=== PATIENT | male | born 1975 | race Caucasian/White ===

== ENCOUNTER 2024-09-22 18:12 | Inpatient (IN) | payer BC, SELFPAY ==
[2024-09-22] VITALS (17 sets, daily range): BP systolic 124–170; BP diastolic 77–113; PULSE 67–138; RESP 14–30; TEMP 36.6–37.1; O2SAT 96–99; BMI 32.8; BMI 33.5
--- NOTE | 2024-09-22 18:14 | ECG_ITS ---
APPROVED REPORT Exam: Resting ECG HR:116 bpm ECG Measurements Heart Rate 116 AXES SD 246 P 72 QRSd 174 QRS 42 QT 376 T -34 QTc 445 Conclusion SINUS TACHYCARDIA WITH FIRST DEGREE AV BLOCK POSSIBLE RIGHT ATRIAL ENLARGEMENT [0.25mV P-WAVE] LEFT ATRIAL ENLARGEMENT [-0.15mV P-WAVE IN V1/V2] LEFT BUNDLE BRANCH BLOCK [120+ ms QRS DURATION, 80+ ms Q/S IN V1/V2, 85+ ms R IN I/aVL/V5/V6] ABNORMAL ECG UNCONFIRMED REPORT Electronically signed by : Tigre Giordano, 09/22/2024 19:08:17
--- NOTE | 2024-09-22 18:16 | ED_ITS ---
Discharge Plan Disposition Patient Disposition: Admitted Condition: Critical Prescriptions Prescriptions: No Action bupropion HCl 150 mg tablet sustained-release 12 hr 150 mg PO BID Patient Comments: TAKE 1 TABLET BY MOUTH TWICE DAILY FOR 90 DAYS atorvastatin 10 mg tablet 10 mg PO DAILY Patient Comments: TAKE 1 TABLET BY MOUTH ONCE DAILY FOR 90 DAYS omeprazole 40 mg capsule,delayed release(DR/EC) 40 mg PO DAILY Patient Comments: TAKE 1 CAPSULE BY MOUTH ONCE DAILY amlodipine 10 mg tablet 10 mg PO DAILY Patient Comments: TAKE 1 TABLET BY MOUTH ONCE DAILY FOR 90 DAYS divalproex 500 mg tablet extended release 24 hr 500 mg PO DAILY Patient Comments: TAKE 1 TABLET BY MOUTH ONCE DAILY lisinopril 5 mg tablet 5 mg PO DAILY Patient Comments: TAKE 1 TABLET BY MOUTH ONCE DAILY Clinical Impressions Clinical Impression: Left bundle branch block, Hypertensive emergency Chest pain Qualifiers: Chest pain type: unspecified Qualified Code(s): R07.9 - Chest pain, unspecified Pulmonary edema Qualifiers: Chronicity: acute Qualified Code(s): J81.0 - Acute pulmonary edema Print Language Print Language: Fijian Discharge ED Provider: Tigre Giordano General Adult HPI <MAKAYLA Tirado - Last Filed: 09/22/24 19:47> General Chief complaint: Chest Pain Stated complaint: Chest pain Time Seen by Provider: 09/22/24 18:13 History of Present Illness HPI narrative: Patient presents for evaluation of chest pain. Patient reports that he was walking to his car around 6 PM and started getting very short of breath. He then began having chest pain located in the center of his chest. He noticed that his heart rate was also very fast and hence presented to the emergency department. Patient states that he has been having anginal type symptoms since June after a bout of COVID in May. 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 He is currently on amlodipine and atorvastatin lisinopril. Patient states that he has been having intermittent anginal symptoms however the last week they have increased the in intensity frequency and duration.. He currently denies fever chills hemoptysis hematochezia melena he had some nausea but no vomiting or diarrhea. Related Data Home Medications ?Medication ?Instructions ?Recorded ?Confirmed amlodipine 10 mg tablet 10 mg PO DAILY 09/22/24 09/22/24 atorvastatin 10 mg tablet 10 mg PO DAILY 09/22/24 09/22/24 bupropion HCl 150 mg tablet,12 hr 150 mg PO BID 09/22/24 09/22/24 sustained-release divalproex 500 mg tablet,extended 500 mg PO DAILY 09/22/24 09/22/24 release 24 hr lisinopril 5 mg tablet 5 mg PO DAILY 09/22/24 09/22/24 omeprazole 40 mg capsule,delayed 40 mg PO DAILY 09/22/24 09/22/24 release Allergies Allergy/AdvReac Type Severity Reaction Status Date / Time No Known Allergies Allergy Verified 09/22/24 18:32 [facility] <MAKAYLA Tirado - Last Filed: 09/22/24 19:47> [facility] Disclaimer: The information contained in this section may have been updated after the patient was seen, as this information can be updated by other users. Social History (Updated 09/22/24 @ 19:47 by MAKAYLA Tirado) Smoking Status: Never smoker alcohol intake: never current occupational status: employed Travel in the last 8 weeks: None Have you lived/traveled outside [place] in past 30 days?: No Contact w/someone who lives/traveled outside US past 30 days?: No Exposure to someone with infectious disease in past 14 days?: No Do you have a fever (greater than 100.4 F or 38 C)?: No Have you tested positive for COVID-19: No Exposed to someone with COVID-19 in past 14 days?: No Do you have a sore throat?: No Do you have a cough?: No Do you have any weakness?: No Do you have any diarrhea?: No Are you experiencing any unusual bleeding?: No Do you have any muscle aches/pain?: No Do you have any abdominal pain?: No Are you experiencing loss of taste or smell?: No <MAKAYLA Tirado - Last Filed: 09/22/24 19:47> ROS Obtained: Yes Systems reviewed as appropriate & no additional complaints except as documented Physical Exam <MAKAYLA Tirado - Last Filed: 09/22/24 19:47> General General appearance: alert and in no apparent distress Respiratory Respiratory exam: Present normal lung sounds bilaterally Cardiovascular Cardiovascular exam: Present tachycardia, normal heart sounds, +S1 and +S2 Neurological Exam Neurological exam: Present alert and oriented X3 Medical Decision Making <MAKAYLA Tirado - Last Filed: 09/22/24 19:47> Medical Records Medical records reviewed: Yes I reviewed the patient's medical records. Screening: Per USPSTF and CDC recommendations, given the prevalence of disease in our region, it is our hospital?s policy to screen for HIV and viral Hepatitis for all patients aged 18 and over and those with ongoing risk factors. [place] Inquiry Pt receiving controlled substance: No Vital Signs: 09/22/24 18:17 09/22/24 18:19 09/22/24 18:20 Temperature 98.7 F Temperature Source Temporal Artery Scan Pulse Rate 120 H 105 H Pulse Rate [Right] 138 H Respiratory Rate 18 Blood Pressure 170/112 H 168/112 H Blood Pressure [Right Arm] 170/112 H Blood Pressure Mean Blood Pressure Mean [Right Arm] 131 Blood Pressure Source [Right Arm] Automatic Cuff Blood Pressure Position [Right Arm] Sitting 02 Sat by Pulse Oximetry 97 98 99 Oxygen Delivery Method Room Air Room Air 09/22/24 18:36 09/22/24 19:00 09/22/24 19:03 Temperature Temperature Source Pulse Rate 101 H 88 85 Pulse Rate [Right] Respiratory Rate 30 H 20 Blood Pressure 148/100 H 146/106 H Blood Pressure [Right Arm] Blood Pressure Mean 118 Blood Pressure Mean [Right Arm] Blood Pressure Source [Right Arm] Blood Pressure Position [Right Arm] 02 Sat by Pulse Oximetry 98 97 Oxygen Delivery Method 09/22/24 19:05 09/22/24 19:15 09/22/24 19:24 Temperature Temperature Source Pulse Rate 84 86 78 Pulse Rate [Right] Respiratory Rate 19 14 18 Blood Pressure 162/113 H 153/107 H 137/100 H Blood Pressure [Right Arm] Blood Pressure Mean Blood Pressure Mean [Right Arm] Blood Pressure Source [Right Arm] Blood Pressure Position [Right Arm] 02 Sat by Pulse Oximetry 99 98 98 Oxygen Delivery Method Room Air Lab Data Lab results reviewed: Yes I reviewed the patient's lab results. Lab Results 09/22/24 18:20: WBC 6.0, RBC 4.86, Hgb 15.5, Hct 44.6, MCV 91.8, MCH 31.9 H, MCHC 34.8, RDW 12.5, Plt Count 244, MPV 10.2, Neut % (Auto) 56.4, Lymph % (Auto) 27.9, Pepin % (Auto) 11.1 H, Eos % (Auto) 3.2, Baso % (Auto) 0.7, Neut # (Auto) 3.4, Lymph # (Auto) 1.7, Pepin # (Auto) 0.7, Eos # (Auto) 0.2, Baso # (Auto) 0.0, PT 10.8, INR 0.96, APTT 26.2 L, D-Dimer 0.55 H, Sodium 140, Potassium 3.9, Chloride 104, Carbon Dioxide 25, Anion Gap 14.9, BUN 13, Creatinine 0.80, Estimated Creat Clear 170, Estimated GFR 102, Est GFR ( Amer) 123, G lucose 157 H, Hemoglobin A1c 5.3, Calcium 9.2, Total Bilirubin 0.8, AST 44, ALT 90 H, Alkaline Phosphatase 55, Troponin I 0.01, NT-Pro-B Natriuret Pep 766 H, Total Protein 7.9, Albumin 4.5, Globulin 3.4 H, Albumin/Globulin Ratio 1.3, Procalcitonin 0.065, Free T4 Index 2.4 L, Thyroxine (T4) 7.9, T3 Uptake 31 09/22/24 18:20 09/22/24 18:20 Orders (Tests/Meds): ED MEDICATIONS Generic Name Dose Route Start Last Admin Trade Name Freq PRN Reason Stop Dose Admin Nitroglycerin/Dextrose 250 mls @ 3 mls/hr 09/22/24 19:15 09/22/24 19:17 Nitroglycerin 50mg/250ml D5w IV 10/22/24 19:14 10 mcg/min .Q24H [place] 3 mls/hr Administration Protocol 10 MCG/MIN Heparin Sodium/Dextrose 500 mls @ 20 mls/hr 09/22/24 19:30 09/22/24 19:42 Heparin 25,000 Units In D5w 500ml Premix IV 10/22/24 19:29 20 mls/hr .Q25H [place] Administration 1,000 UNITS/HR Miscellaneous 1 each 09/22/24 19:15 Heparin Drip Consult NOTAPPLIC 10/22/24 19:14 CON[facility]ULT [facility]Y [place] Discontinued Medications Generic Name Dose Route Start Last Admin Trade Name Marla PRN Reason Stop Dose Admin Acetaminophen 1,000 mg 09/22/24 18:20 09/22/24 18:43 Acetaminophen 1,000mg/100ml Vial IV 09/22/24 18:21 1,000 mg ONCE ONE Administration Aspirin 324 mg 09/22/24 18:40 09/22/24 18:43 Aspirin 81mg Chewable Tablet PO 09/22/24 18:41 324 mg ONCE ONE Administration Furosemide 40 mg 09/22/24 19:30 09/22/24 19:41 Furosemide 40mg/4ml Vial IV 09/22/24 19:31 40 mg ONCE ONE Administration Heparin Sodium (Porcine) 4,000 unit 09/22/24 19:30 09/22/24 19:41 Heparin Sodium 5,000 Unit/Ml Vial IV 09/22/24 19:31 4,000 unit ONCE ONE Administration Ketorolac Tromethamine 15 mg 09/22/24 18:20 09/22/24 18:43 Ketorolac 30mg/Ml Vial IV 09/22/24 18:21 15 mg ONCE ONE Administration Metoprolol Tartrate 5 mg 09/22/24 18:50 09/22/24 18:55 Metoprolol Tartrate 5mg/5ml Vial IV 09/22/24 18:51 5 mg ONCE ONE Administration Metoprolol Tartrate 5 mg 09/22/24 19:01 09/22/24 19:00 Metoprolol Tartrate 5mg/5ml Vial IV 09/22/24 19:02 5 mg ONCE ONE Administration Metoprolol Tartrate 5 mg 09/22/24 19:06 09/22/24 19:12 Metoprolol Tartrate 5mg/5ml Vial IV 09/22/24 19:07 5 mg ONCE ONE Administration Metoprolol Tartrate 50 mg 09/22/24 19:39 09/22/24 19:53 Metoprolol Tartrate 50mg Tablet PO 09/22/24 19:40 50 mg ONCE ONE Administration Ondansetron HCl 4 mg 09/22/24 18:20 09/22/24 18:44 Ondansetron 4mg/2ml Vial IV 09/22/24 18:21 4 mg ONCE ONE Administration ORDERS Category Date Time Status Chest XR 2 view (NOT portable) [XR chest 2V] Stat Exams 09/22/24 18:20 Completed POCUS Point of Care (ER Only) Stat Exams 09/22/24 18:32 Completed BNP [NT Pro Brain Natriuretic Pep.] Stat Lab 09/22/24 18:20 Completed CBC w/Auto Diff [Complete Blood Count Auto Diff] Stat Lab 09/22/24 18:20 Completed CMP [Comprehensive Metabolic Panel] Stat Lab 09/22/24 18:20 Completed D-Dimer Stat Lab 09/22/24 18:20 Completed Hemoglobin A1C Stat Lab 09/22/24 18:20 Completed INR [Prothrombin Time INR] Stat Lab 09/22/24 18:20 Completed PTT Heparin (inpatient only) Stat Lab 09/22/24 18:20 Completed PTT Heparin (inpatient only) Stat Lab 09/23/24 01:30 Ordered Procalcitonin Stat Lab 09/22/24 18:20 Completed Thyroid Panel Stat Lab 09/22/24 18:20 Results Trop I [Troponin I] Stat Lab 09/22/24 18:20 Completed Troponin I Q3H Lab 09/22/24 21:30 Ordered Troponin I Q3H Lab 09/23/24 00:30 Ordered UA [Urinalysis and Microscopic] Stat Lab 09/22/24 18:20 Ordered UDS [Drug Screen,Urine] Stat Lab 09/22/24 18:21 Ordered HEART Score History (anamnesis): Moderately suspicious ECG: Non-specific disturbance Age: 45-65 years Risk factors: 3 or more risk factors Troponin: </= normal limit HEART Score: 5 Medical Decision Narrative: In summary patient is a 79-year-old male who presents to the emergency department for evaluation of chest pain. Patient is initially hemodynamically unstable with a hypertensive blood pressure 170/112 heart rate of 138 with sinus tachycardia on the bedside monitor breathing 18 times a minute satting at 97% on room air upon arrival, afebrile at 98.7. Physical exam is remarkable for no reproducible chest pain on palpation, breath sounds clear and equal bilaterally to the bases without adventitious sounds, no increased work of breathing or accessory muscle use, no dependent edema noted, abdomen soft nontender no rebound or guarding no rigidity. Mechelle Coma Score is 15. Differential diagnosis includes hypertensive emergency versus tachyarrhythmia versus ACS versus PE etc. Initial workup will be conducted with hematologic labs 2 view chest x-ray twelve-lead EKG urinalysis. Initial interventions include 324 chewable aspirin Tylenol and Toradol. I then had an interactive discussion with Dr. Adrian after the first EKG showed a left bundle branch block and patient is still symptomatic with chest pain and dyspnea. He still tachycardic and hypertensive. Dr. Adrian wanted to do rapid metoprolol IV push every 5 minutes to try to have his target heart rate in the 70s. We did do exactly that and we have slowed his heart rate down into the upper 70s and his blood pressure still remains 140/100 however his symptoms are abating. He reports that he has some tightness with breast but no chest pain. I then talked to Dr. Adrian again and the plan is to start the patient on a heparin and nitroglycerin drip with a target heart rate of 70 and goal is to get him pain-free. Initial workup reviewed by me and his hematologic labs show a normal white count normal H&H no neutrophilic shift, INR 0.96 D-dimer 0.55 and he is cleared for PE by years criteria, glucose is 157 hemoglobin A1c is 5.3 initial troponin is 0.01 NT proBNP is 766 and his procalcitonin is 0.065, mild formal interpretation of his plain film chest x-ray shows early signs of peribronchial cuffing which could be early pulmonary edema due to his hypertension and heart rate. Upon repeat evaluation at 1929 patient is still resting comfortably and feels better but still having some discomfort. I will give him a small dose of Lasix but he has having no chest pain currently. Dr. Adrian notified at 1929 regarding patient's new vital signs blood pressure and heart rate and he will give the patient a dose of metoprolol tonight and plans to evaluate for heart cath tomorrow.. Given this I had interactive discussion with hospital medicine regarding patient DE LEON presentation and management and he will be admitted for further evaluation and care with cardiology consult for the a.m. <Tigre Giordano MD - Last Filed: 09/22/24 20:00> Vital Signs: 09/22/24 18:17 09/22/24 18:19 09/22/24 18:20 Temperature 98.7 F Temperature Source Temporal Artery Scan Pulse Rate 120 H 105 H Pulse Rate [Right] 138 H Respiratory Rate 18 Blood Pressure 170/112 H 168/112 H Blood Pressure [Right Arm] 170/112 H Blood Pressure Mean Blood Pressure Mean [Right Arm] 131 Blood Pressure Source [Right Arm] Automatic Cuff Blood Pressure Position [Right Arm] Sitting 02 Sat by Pulse Oximetry 97 98 99 Oxygen Delivery Method Room Air Room Air 09/22/24 18:36 09/22/24 19:00 09/22/24 19:03 Temperature Temperature Source Pulse Rate 101 H 88 85 Pulse Rate [Right] Respiratory Rate 30 H 20 Blood Pressure 148/100 H 146/106 H Blood Pressure [Right Arm] Blood Pressure Mean 118 Blood Pressure Mean [Right Arm] Blood Pressure Source [Right Arm] Blood Pressure Position [Right Arm] 02 Sat by Pulse Oximetry 98 97 Oxygen Delivery Method 09/22/24 19:05 09/22/24 19:15 09/22/24 19:24 Temperature Temperature Source Pulse Rate 84 86 78 Pulse Rate [Right] Respiratory Rate 19 14 18 Blood Pressure 162/113 H 153/107 H 137/100 H Blood Pressure [Right Arm] Blood Pressure Mean Blood Pressure Mean [Right Arm] Blood Pressure Source [Right Arm] Blood Pressure Position [Right Arm] 02 Sat by Pulse Oximetry 99 98 98 Oxygen Delivery Method Room Air Lab Data Lab Results 09/22/24 18:20: WBC 6.0, RBC 4.86, Hgb 15.5, Hct 44.6, MCV 91.8, MCH 31.9 H, MCHC 34.8, RDW 12.5, Plt Count 244, MPV 10.2, Neut % (Auto) 56.4, Lymph % (Auto) 27.9, Pepin % (Auto) 11.1 H, Eos % (Auto) 3.2, Baso % (Auto) 0.7, Neut # (Auto) 3.4, Lymph # (Auto) 1.7, Pepin # (Auto) 0.7, Eos # (Auto) 0.2, Baso # (Auto) 0.0, PT 10.8, INR 0.96, APTT 26.2 L, D-Dimer 0.55 H, Sodium 140, Potassium 3.9, Chloride 104, Carbon Dioxide 25, Anion Gap 14.9, BUN 13, Creatinine 0.80, Estimated Creat Clear 170, Estimated GFR 102, Est GFR ( Amer) 123, G lucose 157 H, Hemoglobin A1c 5.3, Calcium 9.2, Total Bilirubin 0.8, AST 44, ALT 90 H, Alkaline Phosphatase 55, Troponin I 0.01, NT-Pro-B Natriuret Pep 766 H, Total Protein 7.9, Albumin 4.5, Globulin 3.4 H, Albumin/Globulin Ratio 1.3, Procalcitonin 0.065, Free T4 Index 2.4 L, Thyroxine (T4) 7.9, T3 Uptake 31 Orders (Tests/Meds): ED MEDICATIONS Generic Name Dose Route Start Last Admin Trade Name Freq PRN Reason Stop Dose Admin Nitroglycerin/Dextrose 250 mls @ 3 mls/hr 09/22/24 19:15 09/22/24 19:17 Nitroglycerin 50mg/250ml D5w IV 10/22/24 19:14 10 mcg/min .Q24H [place] 3 mls/hr Administration Protocol 10 MCG/MIN Heparin Sodium/Dextrose 500 mls @ 20 mls/hr 09/22/24 19:30 09/22/24 19:42 Heparin 25,000 Units In D5w 500ml Premix IV 10/22/24 19:29 20 mls/hr .Q25H [place] Administration 1,000 UNITS/HR Miscellaneous 1 each 09/22/24 19:15 Heparin Drip Consult NOTAPPLIC 10/22/24 19:14 [facility] [place] Discontinued Medications Generic Name Dose Route Start Last Admin Trade Name Freq PRN Reason Stop Dose Admin Acetaminophen 1,000 mg 09/22/24 18:20 09/22/24 18:43 Acetaminophen 1,000mg/100ml Vial IV 09/22/24 18:21 1,000 mg ONCE ONE Administration Aspirin 324 mg 09/22/24 18:40 09/22/24 18:43 Aspirin 81mg Chewable Tablet PO 09/22/24 18:41 324 mg ONCE ONE Administration Furosemide 40 mg 09/22/24 19:30 09/22/24 19:41 Furosemide 40mg/4ml Vial IV 09/22/24 19:31 40 mg ONCE ONE Administration Heparin Sodium (Porcine) 4,000 unit 09/22/24 19:30 09/22/24 19:41 Heparin Sodium 5,000 Unit/Ml Vial IV 09/22/24 19:31 4,000 unit ONCE ONE Administration Ketorolac Tromethamine 15 mg 09/22/24 18:20 09/22/24 18:43 Ketorolac 30mg/Ml Vial IV 09/22/24 18:21 15 mg ONCE ONE Administration Metoprolol Tartrate 5 mg 09/22/24 18:50 09/22/24 18:55 Metoprolol Tartrate 5mg/5ml Vial IV 09/22/24 18:51 5 mg ONCE ONE Administration Metoprolol Tartrate 5 mg 09/22/24 19:01 09/22/24 19:00 Metoprolol Tartrate 5mg/5ml Vial IV 09/22/24 19:02 5 mg ONCE ONE Administration Metoprolol Tartrate 5 mg 09/22/24 19:06 09/22/24 19:12 Metoprolol Tartrate 5mg/5ml Vial IV 09/22/24 19:07 5 mg ONCE ONE Administration Metoprolol Tartrate 50 mg 09/22/24 19:39 09/22/24 19:53 Metoprolol Tartrate 50mg Tablet PO 09/22/24 19:40 50 mg ONCE ONE Administration Ondansetron HCl 4 mg 09/22/24 18:20 09/22/24 18:44 Ondansetron 4mg/2ml Vial IV 09/22/24 18:21 4 mg ONCE ONE Administration ORDERS Category Date Time Status Chest XR 2 view (NOT portable) [XR chest 2V] Stat Exams 09/22/24 18:20 Completed POCUS Point of Care (ER Only) Stat Exams 09/22/24 18:32 Completed BNP [NT Pro Brain Natriuretic Pep.] Stat Lab 09/22/24 18:20 Completed CBC w/Auto Diff [Complete Blood Count Auto Diff] Stat Lab 09/22/24 18:20 Completed CMP [Comprehensive Metabolic Panel] Stat Lab 09/22/24 18:20 Completed D-Dimer Stat Lab 09/22/24 18:20 Completed Hemoglobin A1C Stat Lab 09/22/24 18:20 Completed INR [Prothrombin Time INR] Stat Lab 09/22/24 18:20 Completed PTT Heparin (inpatient only) Stat Lab 09/22/24 18:20 Completed PTT Heparin (inpatient only) Stat Lab 09/23/24 01:30 Ordered Procalcitonin Stat Lab 09/22/24 18:20 Completed Thyroid Panel Stat Lab 09/22/24 18:20 Results Trop I [Troponin I] Stat Lab 09/22/24 18:20 Completed Troponin I Q3H Lab 09/22/24 21:30 Ordered Troponin I Q3H Lab 04/24/25 00:30 Ordered UA [Urinalysis and Microscopic] Stat Lab 09/22/24 18:20 Ordered UDS [Drug Screen,Urine] Stat Lab 09/22/24 18:21 Ordered HEART Score HEART Score: 5 Medical Decision Narrative: In summary patient is a 79-year-old male who presents to the emergency department for evaluation of chest pain. Patient is initially hemodynamically unstable with a hypertensive blood pressure 170/112 heart rate of 138 with sinus tachycardia on the bedside monitor breathing 18 times a minute satting at 97% on room air upon arrival, afebrile at 98.7. Physical exam is remarkable for no reproducible chest pain on palpation, breath sounds clear and equal bilaterally to the bases without adventitious sounds, no increased work of breathing or accessory muscle use, no dependent edema noted, abdomen soft nontender no rebound or guarding no rigidity. Mechelle Coma Score is 15. Differential diagnosis includes hypertensive emergency versus tachyarrhythmia versus ACS versus PE etc. Initial workup will be conducted with hematologic labs 2 view chest x-ray twelve-lead EKG urinalysis. Initial interventions include 324 chewable aspirin Tylenol and Toradol. I then had an interactive discussion with Dr. Adrian after the first EKG showed a left bundle branch block and patient is still symptomatic with chest pain and dyspnea. He still tachycardic and hypertensive. Dr. Adrian wanted to do rapid metoprolol IV push every 5 minutes to try to have his target heart rate in the 70s. We did do exactly that and we have slowed his heart rate down into the upper 70s and his blood pressure still remains 140/100 however his symptoms are abating. He reports that he has some tightness with breast but no chest pain. I then talked to Dr. Adrian again and the plan is to start the patient on a heparin and nitroglycerin drip with a target heart rate of 70 and goal is to get him pain-free. Initial workup reviewed by me and his hematologic labs show a normal white count normal H&H no neutrophilic shift, INR 0.96 D-dimer 0.55 and he is cleared for PE by years criteria, glucose is 157 hemoglobin A1c is 5.3 initial troponin is 0.01 NT proBNP is 766 and his procalcitonin is 0.065, mild formal interpretation of his plain film chest x-ray shows early signs of peribronchial cuffing which could be early pulmonary edema due to his hypertension and heart rate. Upon repeat evaluation at 1930 patient is still resting comfortably and feels better but still having some discomfort. I will give him a small dose of Lasix but he has having no chest pain currently. Dr. Adrian notified at 1930 regarding patient's new vital signs blood pressure and heart rate and he will give the patient a dose of metoprolol tonight and plans to evaluate for heart cath tomorrow.. Given this I had interactive discussion with hospital medicine regarding patient DE LEON presentation and management and he will be admitted for further evaluation and care with cardiology consult for the a.m. DOMINICK attestation I was consulted by the DOMINICK, and we discussed the complexity of problems being addressed. I approved the treatment and management plan for this patient's care in the emergency department, thus performing a substantial portion of the medical decision making. I examined the patient at bedside on arrival. He had concerning anginal symptoms. EKG was independently interpreted by me revealing of an apparent new left bundle branch block with sinus tachycardia, no STEMI by Sgarbossa criteria. Patient had had a concerning stress test several years ago but did not follow- up after this. Also had a concerning family history with an early cardiac by his father and his grandfather at the age that he is now. Has other risk factors with hypertension and hyperlipidemia. Interval EKGs were obtained x 2 revealing no dynamic changes or STEMI by Sgarbossa criteria. Performed [id number] ultrasound at bedside revealing of hypokinesis of apex. Cardiology was immediately consulted who recommended management as detailed above. Several more interval EKGs were obtained and independently interpreted by me revealing no new dynamic changes after treatment with metoprolol and nitroglycerin. Initiated on heparin. Patient reported full symptomatic relief and was ultimately admitted to the ICU with plan for cardiac cath in the morning. Tigre Giordano MD Procedures <Tigre Giordano MD - Last Filed: 09/22/24 20:00> Miscellaneous Procedure Procedure Performed: Cardiac US Limited Cardiac Ultrasound Indication: Chest pain Identified cardiac views: -Cardiac parasternal long axis -Cardiac parasternal short axis -Cardiac apical four-chamber Findings: Hypokinesis of the apex and diminished LVEF Impression: From above Images were saved to permanent archive The study was technically adequate CPT: 72230 This study was performed by me, and I personally interpreted all images/videos. Based on my clinical judgement, these images were adequate and did not necessitate further imaging. Critical Care <MAKAYLA Tirado - Last Filed: 09/22/24 19:47> Critical Care Time Critical Care Time: Yes Attestation: On 09/22/24, the high probability of a clinically significant, sudden or life threatening deterioration of the following system(s) required my full and direct attention, intervention and personal management. The time I documented below is in addition to time spent performing reported procedures but includes the following listed in this critical care notation. Total Time Total Critical Care Time: 60
--- NOTE | 2024-09-22 18:20 | XR_ITS ---
PROCEDURE INFORMATION: Exam: XR Chest Exam date and time: 09/22/2024 6:28 PM Age: 49 years old Clinical indication: Pain; Chest pressure; Additional info: Chest pain TECHNIQUE: Imaging protocol: Radiologic exam of the chest. Views: 2 views. COMPARISON: No relevant prior studies available. FINDINGS: Lungs: No consolidation. Pleural spaces: Unremarkable. No pleural effusion. No pneumothorax. Heart/Mediastinum: Unremarkable. No cardiomegaly. Perihilar peribronchial cuffing could reflect bronchitis. Bones/joints: Lateral plate screw fixation left clavicle. IMPRESSION: No acute findings.
[2024-09-22 18:32] LABS: Basophils % 0.7 % (0.1-2.0); Eosinophils # 0.2 Kmm3 (0.0-0.4); Eosinophils % 3.2 % (0.1-12.0); Hematocrit 44.6 % (42.0-52.0); Hemoglobin 15.5 g/dL (14.1-18.0); Lymphocytes # 1.7 K/mm3 (0.7-4.5); Lymphocytes % 27.9 % (10-50); Mean Corpuscular HGB Conc 34.8 g/dL (31.8-35.4); Mean Corpuscular Hemoglobin 31.9 pg (27.0-31.2); Mean Corpuscular Volume 91.8 fl (80-94); Mean Platelet Volume 10.2 fl (7.4-10.4); Monocytes # 0.7 K/mm3 (0.1-1.0); Monocytes % 11.1 % (1.7-9.3); Neutrophils # 3.4 K/mm3 (1.8-7.8); Neutrophils % 56.4 % (37.0-80.0); Nucleated Red Blood Cells # 0 10^3/uL; Nucleated Red Blood Cells % 0 %; Platelet Count 244 K/mm3 (142-424); Red Blood Count 4.86 M/mm3 (4.60-6.20); Red Cell Distribution Width 12.5 % (11.5-17.5)
[2024-09-22 18:41] LABS: Alanine Aminotransferase 90 U/L (12-78); Albumin Level 4.5 g/dl (3.5-5.0); Albumin/Globulin Ratio 1.3 (1.1-1.8); Alkaline Phosphatase 55 U/L (38-126); Anion Gap 14.9 mEq/L (5-15); Aspartate Amino Transferase 44 U/L (17-59); Bilirubin,Total 0.8 mg/dl (0.2-1.3); Blood Urea Nitrogen 13 mg/dl (9-20); Calcium 9.2 mg/dl (8.4-10.2); Carbon Dioxide 25 mmol/L (22.0-30.0); Chloride 104 mmol/L (98-107); Creatinine Clearance Estimated 170 mL/min (50-200); Estimated Glomerular Filt Rate 102 ml/min (>60); GFR (African American) 123 ML/MIN (>60); Globulin 3.4 g/dL (1.3-3.2); Glucose 157 mg/dl (74-100); Potassium 3.9 mmoL/L (3.5-5.1); Sodium 140 mmol/L (136-145); Total Protein,Serum 7.9 g/dl (6.3-8.2)
[2024-09-22] MEDS: ASPIRIN 81MG CHEWABLE TABLET 324 MG PO (18:43)
[2024-09-22] MEDS: ACETAMINOPHEN 1,000MG/100ML VIAL 1000 MG IV (18:43)
[2024-09-22] MEDS: KETOROLAC 30MG/ML VIAL 15 MG IV (18:43)
[2024-09-22 18:44] LABS: INR 0.96 (0.9-1.1); Prothrombin Time 10.8 seconds (10.1-12.5)
[2024-09-22] MEDS: ONDANSETRON 4MG/2ML VIAL 4 MG IV (18:44)
--- NOTE | 2024-09-22 18:45 | ECG_ITS ---
APPROVED REPORT Exam: Resting ECG HR:106 bpm ECG Measurements Heart Rate 106 AXES ME 147 P 55 QRSd 175 QRS 51 QT 402 T -40 QTc 464 Conclusion SINUS TACHYCARDIA LEFT BUNDLE BRANCH BLOCK [120+ ms QRS DURATION, 80+ ms Q/S IN V1/V2, 85+ ms R IN I/aVL/V5/V6] ABNORMAL ECG UNCONFIRMED REPORT Electronically signed by : Tigre Giordano, 09/22/2024 19:08:37
[2024-09-22 18:54] LABS: NT Pro Brain Natriuretic Pep. 766 pg/mL (0-125)
[2024-09-22] MEDS: METOPROLOL TARTRATE 5MG/5ML VIAL 5 MG IV ×3 (18:55→19:12)
[2024-09-22 18:56] LABS: D-Dimer 0.55 ug/mL (0.0-0.5)
[2024-09-22 18:58] LABS: Procalcitonin 0.065 ng/mL (0.0-2.0)
[2024-09-22 19:00] LABS: Troponin I 0.01 ng/ml (0.00-0.034)
[2024-09-22] MEDS: NITROGLYCERIN IN 5 % DEXTROSE 250 ML 3 MG IV (19:17)
[2024-09-22 19:18] LABS: Hemoglobin A1C 5.3 % (4.0-6.0)
--- NOTE | 2024-09-22 19:18 | PC.NURSE ---
spoke with Lupe Emerson regarding heparin drip consult
[2024-09-22 19:26] LABS: PTT Heparin (inpatient only) 26.2 Seconds (50-75)
--- NOTE | 2024-09-22 19:36 | ECG_ITS ---
APPROVED REPORT Exam: Resting ECG HR:74 bpm ECG Measurements Heart Rate 74 AXES AR 171 P 60 QRSd 177 QRS 60 QT 449 T 173 QTc 476 Conclusion SINUS RHYTHM LEFT BUNDLE BRANCH BLOCK [120+ ms QRS DURATION, 80+ ms Q/S IN V1/V2, 85+ ms R IN I/aVL/V5/V6] ABNORMAL ECG UNCONFIRMED REPORT Electronically signed by : Tigre Giordano, 09/23/2024 01:38:33
[2024-09-22] MEDS: FUROSEMIDE 40MG/4ML VIAL 40 MG IV (19:41)
[2024-09-22] MEDS: HEPARIN SODIUM 5,000 UNIT/ML VIAL 4000 UNIT IV (19:41)
[2024-09-22] MEDS: HEPARIN SODIUM,PORCINE/D5W 500 ML 20 UNIT IV (19:42)
[2024-09-22 19:50] LABS: Free Thyroxine Index 2.4 ug/dL (5.93-13.13); T4 (Thyroxine) 7.9 ug/dl (5.53-11.0); Triiodothryronine (T3) Uptake 31 % (23.5-40.5)
[2024-09-22] MEDS: METOPROLOL TARTRATE 50MG TABLET 50 MG PO (19:53)
[2024-09-22 20:03] LABS: Thyroid Stimulating Hormone 3.59 uIU/mL (0.465-4.68)
--- NOTE | 2024-09-22 20:14 | P.HP_ITS ---
<Statement entered by Ranjeet Head MD - 09/23/24 19:28> Rounded on patient after nurse practitioner. Personally examined and interviewed patient. Agree with exam findings and care plan as documented. History of Present Illness *Admission Date: 09/22/24 *Reason for visit:: Chest pain *History of present illness: This is a 49-year-old male who has a past medical history significant for hypertension and hyperlipidemia who presents with a chief complaint of chest pain. Due to patient's symptoms, he presented to the emergency room for evaluation. While in emergency room, patient presented in a significant sinus tachycardia with a first-degree AV block with heart rates in the 130s. He was given multiple doses of metoprolol which decreased his heart rate below 100. EKG obtained was without any findings consistent T wave inversion in the inferi or and minor ST segment depression; However, patient does have a left bundle branch block and there is no comparison for an EKG in the past, QTc was 476, with normal axis. Patient's case was discussed with cardiology who recommended to continue patient on nitro drip and heparin drip with plans for left heart cath in the a.m. Due to these recommendations, patient been admitted for further management. During my evaluation of the patient, patient states he started experiencing chest pain at 1800 hrs. while walking to his car. His chest pain was coupled with shortness of breath. He states the chest pain was to his left shoulder that radiated down his left arm, was 10 out of 10, and coupled with diaphoresis. Patient admits to having intermittent chest pain for some time while at rest. He voices he was diagnosed with COVID in June and since then he has been having progressively worsening of his intermittent chest pain and shortness of air. Patient did have a stress test performed prior to his diagnosis of COVID, and it revealed possible inferior reversible defect. Unfortunately, patient has had no follow-up since this stress test was performed. Currently, patient is denying any chest pain, PND, lightheadedness, dizziness, fever, chills, rigors, nausea, vomiting, orthopnea, or diarrhea. Per my read, chest x-ray was without any acute cardiopulmonary process. Additional pertinent labs obtained include a heart rate of 138, blood pressure 170/112, D-dimer 0.55, blood glucose of 157, ALT of 90, BNP of 766, and free T4 of 2.4. On further questioning, patient admits to drinking at least a sixpack a day of beer and at least 10 or more beers a day on the weekend. [facility] Disclaimer: The information contained in this section may have been updated after the patient was seen, as this information can be updated by other users. Social History (Updated 09/22/24 @ 19:47 by MAKAYLA Tirado) Smoking Status: Never smoker alcohol intake: never current occupational status: employed Travel in the last 8 weeks: None Have you lived/traveled outside [place] in past 30 days?: No Contact w/someone who lives/traveled outside US past 30 days?: No Exposure to someone with infectious disease in past 14 days?: No Do you have a fever (greater than 100.4 F or 38 C)?: No Have you tested positive for COVID-19: No Exposed to someone with COVID-19 in past 14 days?: No Do you have a sore throat?: No Do you have a cough?: No Do you have any weakness?: No Do you have any diarrhea?: No Are you experiencing any unusual bleeding?: No Do you have any muscle aches/pain?: No Do you have any abdominal pain?: No Are you experiencing loss of taste or smell?: No Review of Systems Review of Systems Review of systems:: pertinent systems reviewed and negative unless documented below Constitutional Constitutional: Reports system reviewed and no additional complaints, except as documented Eyes Eyes: Reports system reviewed and no additional complaints, except as documented ENT Ears, Nose, Mouth, and Throat: Reports system reviewed and no additional complaints, except as documented *Cardiovascular Cardiovascular: Reports chest pain, Reports diaphoresis and Reports dyspnea *Respiratory Respiratory: Reports dyspnea *Gastrointestinal Gastrointestinal: Reports system reviewed and no additional complaints, except as documented *Genitourinary Genitourinary: Reports system reviewed and no additional complaints, except as documented *Musculoskeletal Musculoskeletal: Reports system reviewed and no additional complaints, except as documented Integumentary/Breasts Skin/Breast: Reports system reviewed and no additional complaints, except as documented *Neurologic Neurologic: Reports system reviewed and no additional complaints, except as documented Psychiatric Psychiatric: Reports system reviewed and no additional complaints, except as documented Endocrine Endocrine: Reports system reviewed and no additional complaints, except as documented Hematologic/Lymphatic Hematologic/Lymphatic: Reports system reviewed and no additional complaints, except as documented Allergic/Immunologic Allergic/Immunologic: Reports system reviewed and no additional complaints, except as documented Meds Home Medications and Allergies Home Medications ?Medication ?Instructions ?Recorded ?Confirmed ?Type amlodipine 10 mg tablet 10 mg PO DAILY 09/22/24 09/22/24 History atorvastatin 10 mg tablet 10 mg PO DAILY 09/22/24 09/22/24 History bupropion HCl 150 mg tablet,12 hr 150 mg PO BID 09/22/24 09/22/24 History sustained-release divalproex 500 mg tablet,extended 500 mg PO DAILY 09/22/24 09/22/24 History release 24 hr lisinopril 5 mg tablet 5 mg PO DAILY 09/22/24 09/22/24 History omeprazole 40 mg capsule,delayed 40 mg PO DAILY 09/22/24 09/22/24 History release New Prescriptions to Start Prescriptions: Allergies Allergy/AdvReac Type Severity Reaction Status Date / Time No Known Allergies Allergy Verified 09/22/24 18:32 Exam Data for Last 24 hours Vital signs and Labs for Last 24 Hours: Temp Pulse Resp BP Pulse Ox O2 Del Method 98.7 F 78 18 137/100 H 98 Room Air 09/22/24 18:17 09/22/24 19:24 09/22/24 19:24 09/22/24 19:24 09/22/24 19:24 09/22/24 19:24 Laboratory Results - last 24 hr 09/22/24 18:20: WBC 6.0, RBC 4.86, Hgb 15.5, Hct 44.6, MCV 91.8, MCH 31.9 H, MCHC 34.8, RDW 12.5, Plt Count 244, MPV 10.2, Neut % (Auto) 56.4, Lymph % (Auto) 27.9, Ward % (Auto) 11.1 H, Eos % (Auto) 3.2, Baso % (Auto) 0.7, Neut # (Auto) 3.4, Lymph # (Auto) 1.7, Ward # (Auto) 0.7, Eos # (Auto) 0.2, Baso # (Auto) 0.0, PT 10.8, INR 0.96, APTT 26.2 L, D-Dimer 0.55 H, Sodium 140, Potassium 3.9, Chloride 104, Carbon Dioxide 25, Anion Gap 14.9, BUN 13, Creatinine 0.80, Estimated Creat Clear 170, Estimated GFR 102, Est GFR ( Amer) 123, Glucose 157 H, Hemoglobin A1c 5.3, Calcium 9.2, Total Bilirubin 0.8, AST 44, ALT 90 H, Alkaline Phosphatase 55, Troponin I 0.01, NT-Pro-B Natriuret Pep 766 H, Total Protein 7.9, Albumin 4.5, Globulin 3.4 H, Albumin/Globulin Ratio 1.3, Procalcitonin 0.065, TSH 3.59, Free T4 Index 2.4 L, Thyroxine (T4) 7.9, T3 Uptake 31 I & O for Last 24 hours: Intake & Output 09/19/24 09/20/24 09/21/24 09/22/24 23:59 23:59 23:59 23:59 Weight 109.769 kg Constitutional Constitutional: no acute distress and obese *Routine HEENT Exam Head: Present normocephalic and atraumatic Eye: Present EOMI and PERRL ENT: Present mucous membranes moist *Routine Neck Exam Neck: Present supple, full ROM and trachea midline *Routine Respiratory Exam Respiratory: Present CTA bilaterally, normal respiratory effort, able to speak in complete sentences and symmetric chest movement *Routine Cardiovascular Exam Cardiovascular: Present RRR, Normal S1 and Normal S2 *Routine Abdominal Exam Abdominal: Present soft, normoactive bowel sounds and obese *Routine Rectal Exam Rectal:: deferred *Routine Genitalia Exam Genitalia:: deferred *Routine Extremities Exam Extremities: Present full ROM, pulses intact and normal capillary refill Routine Back/Spine/Pelvis Exam Back/Spine: Present full ROM *Routine Skin Exam Skin: Present intact, dry, warm and normal turgor *Routine Neurological Exam Neurological: Present alert, oriented X3, CN II-XII intact, moving all ex tremities and normal speech Routine Psychiatric Exam Psychiatric: Present normal affect, normal thought process, cooperative, good insight and good judgment H&P: Result Impressions 49-year-old male who has multiple risk factors for acute coronary syndrome with recent stress test that showed reversible signs of ischemia who presents with unstable angina and sinus tachycardia. BNP obtained did show some elevation with concerns for some hypervolemia. Chest x-ray was without any pulmonary findings that were consistent with vascular congestion and patient's lower extremities were without any edema. He was administered 40 mg of Lasix while in the emergency room his shortness of breath and chest pain with the interventions performed have improved/resolved. Assessment and Plan *Assessment and plan (1) Unstable angina: Status: Acute Category: Medical Code(s): I20.0 - Unstable angina (2) Hypertensive emergency: Status: Acute Category: Medical Code(s): I16.1 - Hypertensive emergency (3) Left bundle branch block: Status: Acute Category: Medical Code(s): I44.7 - Left bundle-branch block, unspecified (4) Elevated brain natriuretic peptide (BNP) level: Status: Acute Category: Medical Code(s): R79.89 - Other specified abnormal findings of blood chemistry (5) Hyperglycemia: Status: Acute Category: Medical Code(s): R73.9 - Hyperglycemia, unspecified Plan Assessment: Unstable angina - Will continue nitro drip - Will continue heparin drip - Obtain 2D echo in the a.m. - Will obtain lipid panel in a.m. Hypertensive emergency - Will continue nitro drip - Will continue patient's home medications - Patient was given 50 mg of metoprolol p.o. while in the emergency room - Will hold amlodipine for now Sinus tachycardia with first-degree AV block and left bundle branch block - Patient will be n.p.o. after midnight for planned heart cath - Continue heparin drip as stated above Elevated BNP - Per my evaluation patient appears to be euvolemic - Elevation may be in the setting of a stressful event controls from increased heart rate -Saline lock Hyperglycemia - No formal diagnosis of diabetes - May be due to stress from sinus tachycardia - Patient does have family history of type 2 diabetes - Will obtain hemoglobin A1c in the a.m. Plan: Admit patient to the intensive care unit Will place patient on CIWA protocol Vital signs every hour Consult cardiology Cardiac diet now and then n.p.o. after midnight 2D echo in the a.m. CBC/BMP daily Patient did receive aspirin 325 mg Will continue 81 mg daily 5 mg [place] p.o. every 6 hours as needed pain moderate 2 mg morphine IV push every 2 hours. Severe pain 4 mg Zofran IV push to 8 hours for nausea Full code Total critical care time of 40 minutes I will discuss this case with attending physician Dr. Head and I look forward to more put
[2024-09-22 21:11] LABS: Microscopic, Urine URINE MICROSCOPIC (MICROSCOPIC)
[2024-09-22 21:16] LABS: Appearance,Urine CLEAR (Clear); Bilirubin,Urine Negative (Negative); Blood, Urine Negative (Negative); Color,Urine YELLOW (Yellow); Glucose,Urine (UA) Negative (Negative); Ketones,Urine Negative (Negative); Leukocyte Esterase,Urine Negative (Negative); Nitrate,Urine Negative (Negative); PH,Urine 6.5 (5.0-8.5); Protein,Urine Negative (Negative); Specific Gravity, Urine 1.015 (1.005-1.030); Urobilinogen,Urine 0.2 EU/dl (0.2)
[2024-09-22 21:24] LABS: Squamous Epithelial Cell,Urine Occasional #/hpf (0-5)
[2024-09-22 21:27] LABS: Amphetamine/Metha Screen,Urine Negative ng/ml (<1000); Barbiturates Screen,Urine Negative ng/ml (<200)
[2024-09-22 21:28] LABS: Benzodiazepines Screen,Urine Negative ng/ml (<200); Cannabinoid Screen,Urine Negative ng/ml (<50)
[2024-09-22 21:29] LABS: Cocaine Screen,Urine Negative ng/ml (<300)
[2024-09-22 21:30] LABS: Methadone Screen,Urine Negative ng/ml (<300); Opiate Screen,Urine Negative ng/ml (<300)
[2024-09-22 21:31] LABS: Phencyclidine Screen,Urine Negative ng/ml (<25)
[2024-09-22 22:40] LABS: Troponin I 0.02 ng/ml (0.00-0.034)
[2024-09-23] VITALS (28 sets, daily range): BP systolic 94–147; BP diastolic 53–100; PULSE 57–89; RESP 14–29; TEMP 36.4–36.8; O2SAT 90–98; BMI 33.5
[2024-09-23 01:49] LABS: Troponin I 0.02 ng/ml (0.00-0.034)
[2024-09-23 02:04] LABS: PTT Heparin (inpatient only) 35.5 Seconds (50-75)
[2024-09-23] MEDS: HEPARIN SODIUM 5,000 UNIT/ML VIAL 4000 UNIT IV (02:52)
[2024-09-23] MEDS: HEPARIN SODIUM,PORCINE/D5W 500 ML 28 UNIT IV (02:54)
[2024-09-23 06:33] LABS: Basophils # 0.1 K/mm3 (0-0.2); Eosinophils # 0.2 Kmm3 (0.0-0.4); Eosinophils % 3.5 % (0.1-12.0); Hematocrit 43.2 % (42.0-52.0); Hemoglobin 14.8 g/dL (14.1-18.0); Lymphocytes # 1.7 K/mm3 (0.7-4.5); Lymphocytes % 32.4 % (10-50); Mean Corpuscular HGB Conc 34.3 g/dL (31.8-35.4); Mean Corpuscular Hemoglobin 31.8 pg (27.0-31.2); Mean Corpuscular Volume 92.7 fl (80-94); Mean Platelet Volume 10.5 fl (7.4-10.4); Monocytes # 0.6 K/mm3 (0.1-1.0); Monocytes % 11.6 % (1.7-9.3); Neutrophils # 2.6 K/mm3 (1.8-7.8); Neutrophils % 50.7 % (37.0-80.0); Nucleated Red Blood Cells # 0 10^3/uL; Nucleated Red Blood Cells % 0 %; Platelet Count 222 K/mm3 (142-424); Red Blood Count 4.66 M/mm3 (4.60-6.20); Red Cell Distribution Width 12.9 % (11.5-17.5); Red Cell Distribution Width-SD 43.7 fL; White Blood Count 5.1 K/mm3 (4.8-10.8)
[2024-09-23 06:36] LABS: Chloride 107 mmol/L (98-107)
[2024-09-23 06:37] LABS: Potassium 4.2 mmoL/L (3.5-5.1); Sodium 140 mmol/L (136-145)
[2024-09-23 06:39] LABS: Blood Urea Nitrogen 14 mg/dl (9-20); Creatinine Clearance Estimated 139 mL/min (50-200); Estimated Glomerular Filt Rate 79 ml/min (>60); GFR (African American) 95 ML/MIN (>60)
[2024-09-23 06:40] LABS: Anion Gap 12.2 mEq/L (5-15); Carbon Dioxide 25 mmol/L (22.0-30.0); Chol/HDL Ratio 5.4 (1-3.5); Cholesterol 274 mg/dl (140-200); Glucose 108 mg/dl (74-100); HDL Cholesterol 51 mg/dl (40-60); Triglycerides 186 mg/dl (30-150); VLDL Cholesterol 37 mg/dL (0-40)
[2024-09-23 06:51] LABS: Direct LDL Cholesterol 159.61 mg/dL (100-129)
[2024-09-23 06:52] LABS: Hemoglobin A1C 5.3 % (4.0-6.0)
[2024-09-23] MEDS: DIVALPROEX 250MG (EXTENDED-RELEASE) TABLET 500 MG PO (08:20)
[2024-09-23] MEDS: ASPIRIN 81MG CHEWABLE TABLET 81 MG PO (08:20)
[2024-09-23] MEDS: LISINOPRIL 5MG TABLET 5 MG PO (08:20)
[2024-09-23] MEDS: buPROPion HCl SR 150MG TAB 150 MG PO ×2 (08:20→21:46)
--- NOTE | 2024-09-23 08:25 | HMH.PHAINT1 ---
Pharmacy Intervention Comments: home medication list verified using list from outpatient pharmacy
--- NOTE | 2024-09-23 08:44 | P.CONCA_ITS ---
History of Present Illness History of Present Illness Consult date: 09/23/24 Requesting physician: Ranjeet Head Consult reason: chest pain Chief complaint: Angina, unstable Additional Medical History:: 1. HTN 2. Hyperlipidemia 3. FH of CAD in PGF and Father in their mid to late 50's 4. History of abnormal stress test Pre-COVID infection earlier this year History of present illness: This is a 49-year-old male who has a past medical history significant for hypertension and hyperlipidemia who presents with a chief complaint of chest pain. Due to patient's symptoms, he presented to the emergency room for evaluation. While in emergency room, patient presented in a significant sinus tachycardia with a first-degree AV block with heart rates in the 130s. He was given multiple doses of metoprolol which decreased his heart rate below 100. EKG obtained was without any findings consistent T wave inversion in the inferior and minor ST segment depression; However, patient does have a left bundle branch block and there is no comparison for an EKG in the past, QTc was 476, with normal axis. Patient's case was discussed with cardiology who recommended to continue patient on nitro drip and heparin drip with plans for left heart cath in the a.m. Due to these recommendations, patient been admitted for further management. During my evaluation of the patient, patient states he started experiencing chest pain at 1800 hrs. while walking to his car. His chest pain was coupled with shortness of breath. He states the chest pain was to his left shoulder that radiated down his left arm, was 10 out of 10, and coupled with diaphoresis. Patient admits to having intermittent chest pain for some time while at rest. He voices he was diagnosed with COVID in June and since then he has been having progressively worsening of his intermittent chest pain and shortness of air. Patient did have a stress test performed prior to his diagnosis of COVID, and it revealed possible inferior reversible defect. Unfortunately, patient has had no follow-up since this stress test was performed. Currently, patient is denying any chest pain, PND, lightheadedness, dizziness, fever, chills, rigors, nausea, vomiting, orthopnea, or diarrhea. Per my read, chest x-ray was without any acute cardiopulmonary process. Additional pertinent labs obtained include a heart rate of 138, blood pressure 170/112, D-dimer 0.55, blood glucose of 157, ALT of 90, BNP of 766, and free T4 of 2.4. On further questioning, patient admits to drinking at least a sixpack a day of beer and at least 10 or more beers a day on the weekend. The above per Ced Abbott APRN for the Hospitalist service. The events above confirmed with the patient. He relates increasing SOA/CP walk ing from his truck to work (about 1/2 mile) recently. Yesterday the chest pain increased while driving home which prompted his ER visit. Non-smoker and non-diabetic. Strong FH of CAD in father and paternal GF. Troponins normal. EKG is sinus tach with LBBB. [facility] Disclaimer: The information contained in this section may have been updated after the patient was seen, as this information can be updated by other users. Medical History (Updated 09/22/24 @ 20:42 by Zita Hood RN) Peptic ulcer Alcoholic Hyperlipidemia Hypertension Surgical History (Updated 09/22/24 @ 20:42 by Zita Hood RN) H/O shoulder surgery Family History (Updated 09/22/24 @ 20:43 by Zita Hood RN) Other Diabetes Heart attack Hyperlipidemia Hypertension Social History (Updated 09/22/24 @ 20:44 by Zita Hood RN) Smoking Status: Never smoker alcohol intake: current current occupational status: employed Travel in the last 8 weeks: Outside the continental [place] Have you lived/traveled outside US in past 30 days?: No Contact w/someone who lives/traveled outside US past 30 days?: No Exposure to someone with infectious disease in past 14 days?: No Do you have a fever (greater than 100.4 F or 38 C)?: No Have you tested positive for COVID-19: No Exposed to someone with COVID-19 in past 14 days?: No Do you have a sore throat?: No Do you have a cough?: No Do you have any weakness?: No Are you experiencing any nausea/vomitting?: No Do you have any diarrhea?: No Are you experiencing any unusual bleeding?: No Do you have any muscle aches/pain?: No Do you have any abdominal pain?: No Are you experiencing loss of taste or smell?: No Review of Systems Review of Systems Review of systems:: pertinent systems reviewed and negative unless documented below *Cardiovascular Cardiovascular: Reports chest pain, Reports chest pain at rest, Reports chest pain with activity and Reports dyspnea on exertion *Respiratory Respiratory: Reports dyspnea on exertion *Neurologic Neurologic: Reports system reviewed and no additional complaints, except as documented Exam Data for Last 24 hours Vital signs and Labs for Last 24 Hours: Temp Pulse Resp BP Pulse Ox O2 Del Method 98.1 F 74 25 H 147/100 H 96 Room Air 09/23/24 08:00 09/23/24 08:00 09/23/24 08:00 09/23/24 08:00 09/23/24 08:33 09/23/24 08:33 Laboratory Results - last 24 hr 09/22/24 18:20: WBC 6.0, RBC 4.86, Hgb 15.5, Hct 44.6, MCV 91.8, MCH 31.9 H, MCHC 34.8, RDW 12.5, Plt Count 244, MPV 10.2, Neut % (Auto) 56.4, Lymph % (Auto) 27.9, [place]er % (Auto) 11.1 H, Eos % (Auto) 3.2, Baso % (Auto) 0.7, Neut # (Auto) 3.4, Lymph # (Auto) 1.7, [place]er # (Auto) 0.7, Eos # (Auto) 0.2, Baso # (Auto) 0.0, PT 10.8, INR 0.96, APTT 26.2 L, D-Dimer 0.55 H, Sodium 140, Potassium 3.9, Chloride 104, Carbon Dioxide 25, Anion Gap 14.9, BUN 13, Creatinine 0.80, Estimated Creat Clear 170, Estimated GFR 102, Est GFR ( Amer) 123, Glucose 157 H, Hemoglobin A1c 5.3, Calcium 9.2, Total Bilirubin 0.8, AST 44, ALT 90 H, Alkaline Phosphatase 55, Troponin I 0.01, NT-Pro-B Natriuret Pep 766 H, Total Protein 7.9, Albumin 4.5, Globulin 3.4 H, Albumin/Globulin Ratio 1.3, Procalcitonin 0.065, TSH 3.59, Free T4 Index 2.4 L, Thyroxine (T4) 7.9, T3 Uptake 31 09/22/24 21:00: Urine Color Yellow, Urine Appearance Clear, Urine pH 6.5, Ur Specific [place] 1.015, Urine Protein Negative, Urine Glucose (UA) Negative, Urine Ketones Negative, Urine Blood Negative, Urine Nitrate Negative, Urine Bilirubin Negative, Urine Urobilinogen 0.2, Ur Leukocyte Esterase Negative, Urine RBC None, Urine WBC 3-5, Ur Squamous Epith Cells Occasional, Urine Bacteria None, Urine Opiates Screen Negative, Urine Methadone Screen Negative, Ur Barbituates Screen Negative, Ur Phencyclidine Scrn Negative, Ur Amphetamines Screen Negative, U Benzodiazepines Scrn Negative, Urine Cocaine Screen Negative, U Marijuana (THC) Screen Negative 09/22/24 22:12: Troponin I 0.02 09/23/24 01:07: APTT 35.5 L, Troponin I 0.02 09/23/24 05:59: WBC 5.1, RBC 4.66, Hgb 14.8, Hct 43.2, MCV 92.7, MCH 31.8 H, MCHC 34.3, RDW 12.9, Plt Count 222, MPV 10.5 H, Neut % (Auto) 50.7, Lymph % (Auto) 32.4, Miner % (Auto) 11.6 H, Eos % (Auto) 3.5, Baso % (Auto) 1.0, Neut # (Auto) 2.6, Lymph # (Auto) 1.7, Miner # (Auto) 0.6, Eos # (Auto) 0.2, Baso # (Auto) 0.1, Sodium 140, Potassium 4.2, Chloride 107, Carbon Dioxide 25, Anion Gap 12.2, BUN 14, Creatinine 1.00 D, Estimated Creat Clear 139, Estimated GFR 79, Est GFR ( Amer) 95 D, Glucose 108 H D, Hemoglobin A1c 5.3, Calcium 9.0, Triglycerides 186 H, Cholesterol 274 H, LDL Cholesterol Direct 159.61 H, VLDL Cholesterol 37, HDL Cholesterol 51, Cholesterol/HDL Ratio 5.4 H I & O for Last 24 hours: Intake & Output 09/20/24 09/21/24 09/22/24 09/23/24 11:59 11:59 11:59 11:59 Intake Total 120 / 120 Output Total 850 / 850 Balance -730 / -730 Weight 247 lb 7.996 oz Constitutional Constitutional: no acute distress *Routine Respiratory Exam Respiratory: Present CTA bilaterally *Routine Cardiovascular Exam Cardiovascular: Present RRR; Absent murmur, gallop or rubs Meds Home Medications and Allergies Home Medications ?Medication ?Instructions ?Recorded ?Confirmed ?Type amlodipine 10 mg tablet 10 mg PO DAILY 09/22/24 09/22/24 History aspirin 81 mg chewable tablet 81 mg PO DAILY 09/22/24 09/22/24 History atorvastatin 10 mg tablet 10 mg PO DAILY 09/22/24 09/22/24 History bupropion HCl 150 mg tablet,12 hr 150 mg PO BID 09/22/24 09/22/24 History sustained-release divalproex 500 mg tablet,extended 500 mg PO DAILY 09/22/24 09/22/24 History release 24 hr lisinopril 5 mg tablet 5 mg PO DAILY 09/22/24 09/22/24 History omeprazole 40 mg capsule,delayed 40 mg PO DAILY 09/22/24 09/22/24 History release New Prescriptions to Start Prescriptions: Allergies Allergy/AdvReac Type Severity Reaction Status Date / Time No Known Allergies Allergy Verified 09/22/24 20:31 Assessment and Plan *Assessment and plan (1) Unstable angina: Status: Acute Category: Medical Code(s): I20.0 - Unstable angina (2) Left bundle branch block: Status: Acute Category: Medical Code(s): I44.7 - Left bundle-branch block, unspecified (3) Hypertensive emergency: Status: Acute Category: Medical Code(s): I16.1 - Hypertensive emergency (4) Hyperglycemia: Status: Acute Category: Medical Code(s): R73.9 - Hyperglycemia, unspecified Plan 1. Unstable angina -troponins normal -LBBB with no old EKG for comparison -resolved with IV NTG, Heparin and IV/PO BB -check echo -proceed with [facility] today 2. LBBB on EKG -no old EKG for comparison 3. HTN -continue lisinopril and amlodipine -add metoprolol 4. HLD -continue statin -LDL 159 5. Hyperglycemia -check HgbA1C 6. 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 Continue lisinopril and add metoprolol. No clinical evidence of CHF so will hold lasix but will start spironolactone and jardiance for GDMT. Start eliquis 5 mg BID due to severe cardiomyopathy (likely due to HTN and ETOH). LifeVest before discharge.
[2024-09-23 08:57] LABS: PTT Heparin (inpatient only) 52.7 Seconds (50-75)
--- NOTE | 2024-09-23 09:00 | IR_ITS ---
APPROVED REPORT Patient Location: Inpatient PROCEDURES Left heart catheterization Left ventriculogram Selective coronary angiogram INDICATION Unstable angina Informed consent was obtained prior to the procedure. COMPLICATIONS NONE Estimated Blood Loss: LESS THAN 10 ML TECHNIQUE One percent lidocaine used to anesthetize the right anterior aspect of the wrist. The right radial artery was accessed via the Seldinger technique. A 6 [place] sheath was placed in the right radial artery. 2.5 mg of Verapamil, 800 mcg of nitroglycerin, 1mg Lidocaine and 5000 U Heparin were given through the arterial sheath. The 6 [place] JL 3 guide catheter was also used to perform left heart catheterization, left ventriculogram and selective coronary angiogram. At the end of the procedure the sheath was removed good hemostasis was achieved using Traclet band, patient was transferred to the postop holding area in stable condition. ANGIOGRAPHIC RESULTS The left main artery Normal The left anterior descending artery Proximal mild 10% luminal regularities The circumflex artery Large dominant giving rise to a large ramus intermedius with both ramus and circumflex arteries being normal The right coronary artery Nondominant normal The DOMINGUEZ ventriculogram reveals Severe left ventricular dilatation ejection fraction 15% The left ventricular end-diastolic pressure 20 mmHg IMPRESSION Mild luminal irregularities in the proximal LAD Severe left ventricular dilatation with severely reduced ejection fraction Elevated LVEDP PLAN 1. Patient likely has hypertensive heart disease and should be treated accordingly. Requires GDMT 2. Consider LifeVest upon discharge 3. Patient will likely be a candidate for [employer] in 90 days and less ejection fraction improves with GDMT 4. Risk factor modification 5. Absolute avoidance of alcohol Electronically signed by : Sidney Adrian MD 09/30/2024 09:23:07
--- NOTE | 2024-09-23 09:00 | CA_ITS ---
APPROVED REPORT EXAM: Comprehensive 2D, Doppler, and color-flow Echocardiogram Hot Dip Plating Supervisor: Chelsi Fernandez, RCS, RVS Ht: 6 ft 0 in Wt: 247lbs BSA: 2.33 BP: 137/100 mmHg Rhythm: LBBB Indications: ABN EKG-LBBB/1*AV block, Fatigue CP, Pulmonary edema, SOB, 10/10 Left cp radiating to left arm with diaphoresis, ETOH use, Peptic ulcer 2D Dimensions IVSd 1.01 cm M: 0.6-1.2 LVEF (Visual) 27.00 % PWd 1.55 cm M: 0.6 - 1.2 EF AP4 30.90 % LVDd 6.03 cm M: 4.2 - 5.9 GL Strain -10.7 % LVDs 5.26 cm M: 2.5 - 4.0 Left Atrium 4.33 cm M: 3.0 - 4.0 M-Mode Dimensions RVDd 2.72 cm (0.9-2.6) LA Diam 4.17 cm (1.9-4.0) LVDd 6.07 cm (3.5-5.7) LVDs 5.62 cm (3.5-5.7) IVSd 1.43 cm (0.6-1.1) PWd 1.34 cm (0.6-1.1) EF (Teich) 30.70% EPSs 2.42 cm FS 14.80% EDV (Teich) 223.60 mL TAPSE 3.53 (<1.7) ESV (Teich) 154.90 mL LV Diastology E Decel Time 237 (160-240 msec) E/A Ratio 1.13 MED A' 7.40 cm/s LAT A' 10.80 cm/s Aortic Valve ALEX Index 0.54 cm2/m2 AoV Peak Scott. 115.0 (50-130 cm/s) AO Peak GR. 5.30 mmHg AO Mean GR. 2.90 (<5 mmHg) AO VTI 21.2 (18-25 cm) ALEX (VTI) 1.30 (2.5-4.5 cm2) Mitral Valve MV A Velocity 83.0 (40-130 cm/s) E/A Ratio 1.13 MV Mean Gr. 2.50 (<2mmHg) Pulmonary Valve SD End VMAX 140.0 cm/s Left Ventricle The left ventricle is severely dilated. The left ventricular systolic function is severely reduced. There is increased LV wall thickness. There is severe global hypokinesis present. The septum is asynchronous. Grade 1 diastolic dysfunction is present. LVEF is 20%. Right Ventricle The right ventricle is normal size. Right ventricle is mildly hypokinetic. Atria The left atrium size is normal. The right atrium size is normal. There is no Doppler evidence of interatrial shunt. Aortic Valve Aortic valve is mildly thickened. Trace aortic regurgitation. There is no aortic valvular stenosis. Mitral Valve The mitral valve is normal in structure. No evidence of mitral valve stenosis. Mild mitral regurgitation. Tricuspid Valve Tricuspid valve is grossly normal in structure and function. Trace tricuspid regurgitation. There is insufficient TR jet to estimate RVSP. Pulmonic Valve The pulmonary valve is normal in structure. mild pulmonic regurgitation. Great Vessels The aortic root is normal in size. IVC is normal in size and collapses >50% with inspiration. Pericardium There is no pericardial effusion. Other Information Study Quality: Fair Conclusion Severe LV dilation with severe reduction in LV systolic function (LVEF 20%). Asynchronous septum. Mild MR, mild PI. Electronically signed by : Marilee Lopez MD 09/23/2024 09:40:54
[2024-09-23] MEDS: VERAPAMIL 2.5MG/ML 2ML VIAL 2.5 MG IV (10:01)
[2024-09-23] MEDS: HEPARIN 1,000 UNITS/ML 10ML VIAL (CATH LAB) 5000 UNIT IV (10:01)
[2024-09-23] MEDS: diphenhydrAMINE 50MG/ML VIAL 50 MG IV (10:01)
[2024-09-23] MEDS: HEPARIN 1,000 UNITS/500ML NS (CATH LAB) 3000 UNIT IV (10:02)
[2024-09-23] MEDS: LIDOCAINE 1% 10ML MDV 10 ML IJ (10:02)
[2024-09-23] MEDS: 0.9 % SODIUM CHLORIDE 500 ML 25 ML IV (10:02)
[2024-09-23] MEDS: FENTANYL 100MCG/2ML VIAL 50 MCG IV (10:31)
[2024-09-23] MEDS: MIDAZOLAM HCL 1MG/ML 5ML VIAL 1 MG IV (10:31)
[2024-09-23] MEDS: IOPAMIDOL-370 (76%);100ML BOTTLE 50 ML IV (11:18)
--- NOTE | 2024-09-23 11:36 | PC.NURSE ---
Per MAKAYLA Kelly Hold Nitro at this time.
--- NOTE | 2024-09-23 12:01 | EXP.ACUTE.PN ---
Subjective *Date: 09/23/24 *Time: 22:22 Interval history: Patient denies any chest pain today. She complains of shortness of breath with any exertion. Hemodynamically stable on room air. Afebrile. Awaiting heart cath today Medical Exam Vital signs and Labs for Last 24 Hours: Vital Signs Temp Pulse Pulse Resp BP BP Pulse Ox 09/23/24 11:45 59 L 18 108/68 L 94 L 09/23/24 11:30 64 18 113/73 90 L 09/23/24 11:15 64 18 94/59 L 94 L 09/23/24 11:00 70 18 105/57 L 92 L 09/23/24 10:55 89 16 101/60 L 91 L 09/23/24 10:50 71 16 106/61 L 92 L 09/23/24 10:45 71 70 14 115/61 91 L 09/23/24 09:00 09/23/24 09:00 72 22 126/70 96 09/23/24 08:33 96 09/23/24 08:00 80 09/23/24 08:00 98.1 F 74 25 H 147/100 H 95 09/23/24 06:43 70 22 122/83 94 L 09/23/24 06:43 09/23/24 06:00 62 16 130/74 95 09/23/24 05:00 09/23/24 05:00 66 20 128/75 94 L 09/23/24 04:00 67 94 L 09/23/24 04:00 60 09/23/24 04:00 97.9 F 09/23/24 04:00 64 23 123/72 95 09/23/24 03:00 09/23/24 03:00 78 24 117/71 96 09/23/24 02:00 67 19 118/65 98 09/23/24 01:00 75 20 106/67 L 96 09/23/24 01:00 09/23/24 00:00 80 96 09/23/24 00:00 60 09/23/24 00:00 98.2 F 70 18 116/72 95 09/22/24 23:00 67 22 136/77 96 09/22/24 23:00 09/22/24 22:00 69 19 127/77 96 09/22/24 21:00 74 17 124/99 H 97 09/22/24 21:00 09/22/24 20:51 97 H 20 142/98 H 96 09/22/24 20:32 98.3 F 78 25 H 139/92 H 97 09/22/24 20:29 78 09/22/24 20:18 68 96 09/22/24 20:16 97.9 F 73 16 132/96 H 09/22/24 19:24 78 18 137/100 H 98 09/22/24 19:15 86 14 153/107 H 98 09/22/24 19:05 84 19 162/113 H 99 09/22/24 19:03 85 20 146/106 H 97 09/22/24 19:00 88 30 H 148/100 H 98 09/22/24 18:36 101 H 09/22/24 18:20 105 H 168/112 H 99 09/22/24 18:19 120 H 170/112 H 98 09/22/24 18:17 98.7 F 138 H 18 170/112 H 97 O2 Del Method O2 Flow Rate 09/23/24 11:45 Nasal Cannula 2 09/23/24 11:30 Room Air 09/23/24 11:15 Room Air 09/23/24 11:00 Room Air 09/23/24 10:55 Room Air 09/23/24 10:50 Room Air 09/23/24 10:45 Room Air 09/23/24 09:00 Room Air 09/23/24 09:00 Room Air 09/23/24 08:33 Room Air 09/23/24 08:00 09/23/24 08:00 Room Air 09/23/24 06:43 Room Air 09/23/24 06:43 Room Air 09/23/24 06:00 Room Air 09/23/24 05:00 Room Air 09/23/24 05:00 Room Air 09/23/24 04:00 Room Air 09/23/24 04:00 09/23/24 04:00 09/23/24 04:00 Room Air 09/23/24 03:00 Room Air 09/23/24 03:00 Room Air 09/23/24 02:00 Room Air 09/23/24 01:00 Room Air 09/23/24 01:00 Room Air 09/23/24 00:00 Room Air 09/23/24 00:00 09/23/24 00:00 09/22/24 23:00 Room Air 09/22/24 23:00 Room Air 09/22/24 22:00 Room Air 09/22/24 21:00 Room Air 09/22/24 21:00 Room Air 09/22/24 20:51 Room Air 09/22/24 20:32 Room Air 09/22/24 20:29 09/22/24 20:18 Room Air 09/22/24 20:16 Room Air 09/22/24 19:24 Room Air 09/22/24 19:15 09/22/24 19:05 09/22/24 19:03 09/22/24 19:00 09/22/24 18:36 09/22/24 18:20 09/22/24 18:19 Room Air 09/22/24 18:17 Room Air Intake and Output 09/22/24 09/23/24 09/23/24 23:59 07:59 15:59 Intake Total 120 / 120 Output Total 450 / 450 400 / 400 Balance -450 / -353 -280 / -280 Intake: Intake, Total IV Amount 120 / 120 Heparin Sodium,Porcine/D5w 500 88 / 88 ml @ 1,000 UNITS/HR 20 mls/hr IV .Q25H [facility] Rx#:[id number] Nitroglycerin in 5 % Dextrose 9 / 9 250 ml @ 10 MCG/MIN 3 mls/hr IV .Q24H [facility] Rx#:[id number] Output: Output, Urine Amount 450 / 450 400 / 400 Other: Number of Unmeasured Voids 0 0 1 Weight 112.264 kg 112.264 kg Patient Weight 09/23/24 23:59 Weight 112.264 kg Laboratory Results - last 24 hr 09/22/24 18:20: WBC 6.0, RBC 4.86, Hgb 15.5, Hct 44.6, MCV 91.8, MCH 31.9 H, MCHC 34.8, RDW 12.5, Plt Count 244, MPV 10.2, Neut % (Auto) 56.4, Lymph % (Auto) 27.9, Clinch % (Auto) 11.1 H, Eos % (Auto) 3.2, Baso % (Auto) 0.7, Neut # (Auto) 3.4, Lymph # (Auto) 1.7, Clinch # (Auto) 0.7, Eos # (Auto) 0.2, Baso # (Auto) 0.0, PT 10.8, INR 0.96, APTT 26.2 L, D-Dimer 0.55 H, Sodium 140, Potassium 3.9, Chloride 104, Carbon Dioxide 25, Anion Gap 14.9, BUN 13, Creatinine 0.80, Estimated Creat Clear 170, Estimated GFR 102, Est GFR ( Amer) 123, Glucose 157 H, Hemoglobin A1c 5.3, Calcium 9.2, Total Bilirubin 0.8, AST 44, ALT 90 H, Alkaline Phosphatase 55, Troponin I 0.01, NT-Pro-B Natriuret Pep 766 H, Total Protein 7.9, Albumin 4.5, Globulin 3.4 H, Albumin/Globulin Ratio 1.3, Procalcitonin 0.065, TSH 3.59, Free T4 Index 2.4 L, Thyroxine (T4) 7.9, T3 Uptake 31 09/22/24 21:00: Urine Color Yellow, Urine Appearance Clear, Urine pH 6.5, Ur Specific [place] 1.015, Urine Protein Negative, Urine Glucose (UA) Negative, Urine Ketones Negative, Urine Blood Negative, Urine Nitrate Negative, Urine Bilirubin Negative, Urine Urobilinogen 0.2, Ur Leukocyte Esterase Negative, Urine RBC None, Urine WBC 3-5, Ur Squamous Epith Cells Occasional, Urine Bacteria None, Urine Opiates Screen Negative, Urine Methadone Screen Negative, Ur Barbituates Screen Negative, Ur Phencyclidine Scrn Negative, Ur Amphetamines Screen Negative, U Benzodiazepines Scrn Negative, Urine Cocaine Screen Negative, U Marijuana (THC) Screen Negative 09/22/24 22:12: Troponin I 0.02 09/23/24 01:07: APTT 35.5 L, Troponin I 0.02 09/23/24 05:59: WBC 5.1, RBC 4.66, Hgb 14.8, Hct 43.2, MCV 92.7, MCH 31.8 H, MCHC 34.3, RDW 12.9, Plt Count 222, MPV 10.5 H, Neut % (Auto) 50.7, Lymph % (Auto) 32.4, Clinch % (Auto) 11.6 H, Eos % (Auto) 3.5, Baso % (Auto) 1.0, Neut # (Auto) 2.6, Lymph # (Auto) 1.7, Clinch # (Auto) 0.6, Eos # (Auto) 0.2, Baso # (Auto) 0.1, Sodium 140, Potassium 4.2, Chloride 107, Carbon Dioxide 25, Anion Gap 12.2, BUN 14, Creatinine 1.00 D, Estimated Creat Clear 139, Estimated GFR 79, Est GFR ( Amer) 95 D, Glucose 108 H D, Hemoglobin A1c 5.3, Calcium 9.0, Triglycerides 186 H, Cholesterol 274 H, LDL Cholesterol Direct 159.61 H, VLDL Cholesterol 37, HDL Cholesterol 51, Cholesterol/HDL Ratio 5.4 H 09/23/24 08:35: APTT 52.7 I & O for Labs for Last 24 Hours: Intake & Output 09/20/24 09/21/24 09/22/24 09/23/24 23:59 23:59 23:59 23:59 Intake Total 120 / 120 Output Total 450 / 450 400 / 400 Balance -450 / -353 -280 / -280 Weight 112.264 kg 112.264 kg Constitutional: Present no acute distress Respiratory: Present normal respiratory effort Cardiac: Present Reg Rate and Rhythm GI: Present normal bowel sounds; Absent tenderness Extremities: Present normal inspection and full ROM Skin: Present intact; Absent erythema Neuro: Present Grossly Intact and moves all extremities Assessment and Plan *Assessment and plan (1) Acute HFrEF (heart failure with reduced ejection fraction): Status: Acute Category: Medical Code(s): I50.21 - Acute systolic (congestive) heart failure (2) Unstable angina: Status: Acute Category: Medical Code(s): I20.0 - Unstable angina (3) Hypertensive emergency: Status: Acute Category: Medical Code(s): I16.1 - Hypertensive emergency (4) Left bundle branch block: Status: Acute Category: Medical Code(s): I44.7 - Left bundle-branch block, unspecified (5) Elevated brain natriuretic peptide (BNP) level: Status: Acute Category: Medical Code(s): R79.89 - Other specified abnormal findings of blood chemistry (6) Hyperglycemia: Status: Acute Category: Medical Code(s): R73.9 - Hyperglycemia, unspecified Plan 49-year-old male who presented with concern for unstable angina. Taken for heart cath today, found to have patent coronaries. Echo did show EF 20% however. New diagnosis of HFrEF. Continues to require inpatient management. Continue monitoring on telemetry. Cardiology assisting with care and initiation of goal-directed meds for heart failure. Problems addressed as follows: Acute HFrEF Nonischemic cardiomyopathy Hypertension Hyperlipidemia -Serial troponins found to be normal. Taken for heart cath today, did not have any significant occlusive lesions. Did have severely reduced EF however. -Echo obtained showing EF 20%. Initiate goal-directed therapy - Initiate Eliquis 5 mg twice daily, continue aspirin 81 mg daily, initiate Lipitor 40 mg nightly, initiate lisinopril 5 mg daily and metoprolol tartrate 50 mg twice daily - Monitor closely on telemetry overnight. - LDL elevated at 159 - Stop nitro and heparin drip. Mood disorder: Continue Wellbutrin 150 mg twice daily and divalproex 500 mg daily Hyperglycemia: A1c obtained at 5.3. Does not appear to have diabetes. Suspect stress reaction with hyperglycemia. Glucose on morning labs of 108. Labs reviewed with normal sodium 140, potassium 4.2, BUN and creatinine 14 and 1.0 respectively. Repeat CBC, CMP, magnesium ordered for the morning. Full code Cardiac diet LifeVest before discharge.
--- NOTE | 2024-09-23 12:58 | HMH.PHAHEP ---
[facility] Pharm[facility] Heparin Dosing Demographic Data Admission date:: 09/23/24 Date: 09/23/24 Time: 12:58 Allergies Allergy/AdvReac Type Severity Reaction Status Date / Time No Known Allergies Allergy Verified 09/22/24 20:31 Height: 1.83 m Weight: 112 kg Indication Medication therapy:: Heparin Current Indications:: ACS Current Active Problems (Updated 09/22/24 @ 20:42 by Zita Hood RN) Hyperglycemia (Acute) Elevated brain natriuretic peptide (BNP) level (Acute) Unstable angina (Acute) Hypertensive emergency (Acute) Pulmonary edema (Acute) Left bundle branch block (Acute) Chest pain (Acute) CVA?: No Bleeding problem?: No Kidney disease?: No DC?: No Desired PTT range:: 50-75 seconds Labs Anticoagulation Lab Results:: 09/22/24 09/23/24 18:20 05:59 Hgb 15.5 14.8 Hct 44.6 43.2 Plt Count 244 222 Monitoring Dose Monitor 1: Date: 09/22/24 Time: 19:42 PTT Result:: 26.2 Infusion Rate:: HEPARIN 4000 UNIT BOLUS, THEN HEPARIN 20 ML/HR (1000 UNITS/HR) Dose Monitor 2: Date: 09/23/24 Time: 01:07 PTT Result:: 35.5 Infusion Rate:: BOLUS OF HEPARIN 4000 UNITS, THEN HEPARIN 28 ML/HR (1400 UNITS/HR) Dose Monitor 3: Date: 09/23/24 Time: 08:35 PTT Result:: 52.7 Infusion Rate:: CONTINUED HEPARIN 28 ML/HR (1400 UNITS/HR) Core Measures Is INR > or = 2 at discharge?: No Most Recent Labs:: Laboratory Results - last 24 hr 09/22/24 18:20: WBC 6.0, RBC 4.86, Hgb 15.5, Hct 44.6, MCV 91.8, MCH 31.9 H, MCHC 34.8, RDW 12.5, Plt Count 244, MPV 10.2, Neut % (Auto) 56.4, Lymph % (Auto) 27.9, [place] % (Auto) 11.1 H, Eos % (Auto) 3.2, Baso % (Auto) 0.7, Neut # (Auto) 3.4, Lymph # (Auto) 1.7, [place] # (Auto) 0.7, Eos # (Auto) 0.2, Baso # (Auto) 0.0, PT 10.8, INR 0.96, APTT 26.2 L, D-Dimer 0.55 H, Sodium 140, Potassium 3.9, Chloride 104, Carbon Dioxide 25, Anion Gap 14.9, BUN 13, Creatinine 0.80, Estimated Creat Clear 170, Estimated GFR 102, Est GFR ( Amer) 123, Glucose 157 H, Hemoglobin A1c 5.3, Calcium 9.2, Total Bilirubin 0.8, AST 44, ALT 90 H, Alkaline Phosphatase 55, Troponin I 0.01, NT-Pro-B Natriuret Pep 766 H, Total Protein 7.9, Albumin 4.5, Globulin 3.4 H, Albumin/Globulin Ratio 1.3, Procalcitonin 0.065, TSH 3.59, Free T4 Index 2.4 L, Thyroxine (T4) 7.9, T3 Uptake 31 09/22/24 21:00: Urine Color Yellow, Urine Appearance Clear, Urine pH 6.5, Ur Specific [place] 1.015, Urine Protein Negative, Urine Glucose (UA) Negative, Urine Ketones Negative, Urine Blood Negative, Urine Nitrate Negative, Urine Bilirubin Negative, Urine Urobilinogen 0.2, Ur Leukocyte Esterase Negative, Urine RBC None, Urine WBC 3-5, Ur Squamous Epith Cells Occasional, Urine Bacteria None, Urine Opiates Screen Negative, Urine Methadone Screen Negative, Ur Barbituates Screen Negative, Ur Phencyclidine Scrn Negative, Ur Amphetamines Screen Negative, U Benzodiazepines Scrn Negative, Urine Cocaine Screen Negative, U Marijuana (THC) Screen Negative 09/22/24 22:12: Troponin I 0.02 09/23/24 01:07: APTT 35.5 L, Troponin I 0.02 09/23/24 05:59: WBC 5.1, RBC 4.66, Hgb 14.8, Hct 43.2, MCV 92.7, MCH 31.8 H, MCHC 34.3, RDW 12.9, Plt Count 222, MPV 10.5 H, Neut % (Auto) 50.7, Lymph % (Auto) 32.4, [place] % (Auto) 11.6 H, Eos % (Auto) 3.5, Baso % (Auto) 1.0, Neut # (Auto) 2.6, Lymph # (Auto) 1.7, [place] # (Auto) 0.6, Eos # (Auto) 0.2, Baso # (Auto) 0.1, Sodium 140, Potassium 4.2, Chloride 107, Carbon Dioxide 25, Anion Gap 12.2, BUN 14, Creatinine 1.00 D, Estimated Creat Clear 139, Estimated GFR 79, Est GFR ( Amer) 95 D, Glucose 108 H D, Hemoglobin A1c 5.3, Calcium 9.0, Triglycerides 186 H, Cholesterol 274 H, LDL Cholesterol Direct 159.61 H, VLDL Cholesterol 37, HDL Cholesterol 51, Cholesterol/HDL Ratio 5.4 H 09/23/24 08:35: APTT 52.7 If INR was < than 2.0 why was therapy stopped?: HEPARIN STOPPED Were Heparin and Warfarin started on the same day?: No
[2024-09-23] MEDS: APIXABAN 5MG TABLET 5 MG PO (21:46)
[2024-09-23] MEDS: ATORVASTATIN 40MG TABLET 40 MG PO (21:46)
[2024-09-23] MEDS: METOPROLOL TARTRATE 50MG TABLET 50 MG PO (21:46)
[2024-09-23] MEDS: PANTOPRAZOLE 40MG TABLET 40 MG PO (21:46)
[2024-09-24] VITALS (7 sets, daily range): BP systolic 108–144; BP diastolic 66–90; PULSE 51–80; RESP 15–22; TEMP 36.6–36.9; O2SAT 92–96; BMI 33.4
[2024-09-24 05:48] LABS: Basophils % 0.5 % (0.1-2.0); Chloride 106 mmol/L (98-107); Eosinophils # 0.2 Kmm3 (0.0-0.4); Eosinophils % 2.9 % (0.1-12.0); Hematocrit 42.6 % (42.0-52.0); Hemoglobin 14.6 g/dL (14.1-18.0); Lymphocytes # 1.4 K/mm3 (0.7-4.5); Mean Corpuscular HGB Conc 34.3 g/dL (31.8-35.4); Mean Corpuscular Hemoglobin 32.4 pg (27.0-31.2); Mean Corpuscular Volume 94.7 fl (80-94); Mean Platelet Volume 10.7 fl (7.4-10.4); Monocytes # 0.6 K/mm3 (0.1-1.0); Monocytes % 10.8 % (1.7-9.3); Neutrophils # 3.6 K/mm3 (1.8-7.8); Neutrophils % 62.1 % (37.0-80.0); Nucleated Red Blood Cells # 0 10^3/uL; Nucleated Red Blood Cells % 0 %; Platelet Count 200 K/mm3 (142-424); Red Cell Distribution Width 12.9 % (11.5-17.5); Red Cell Distribution Width-SD 45.1 fL; White Blood Count 5.9 K/mm3 (4.8-10.8)
[2024-09-24 05:49] LABS: Potassium 4.4 mmoL/L (3.5-5.1); Sodium 138 mmol/L (136-145)
[2024-09-24 05:52] LABS: Anion Gap 8.4 mEq/L (5-15); Blood Urea Nitrogen 22 mg/dl (9-20); Calcium 8.9 mg/dl (8.4-10.2); Carbon Dioxide 28 mmol/L (22.0-30.0); Creatinine Clearance Estimated 126 mL/min (50-200); Estimated Glomerular Filt Rate 71 ml/min (>60); GFR (African American) 85 ML/MIN (>60); Glucose 91 mg/dl (74-100)
--- NOTE | 2024-09-24 07:44 | P.DS_ITS ---
General Admission date:: 09/22/24 Discharge date: 09/24/24 HPI HPI HPI: This is a 49-year-old male who has a past medical history significant for hypertension and hyperlipidemia who presents with a chief complaint of chest pain. Due to patient's symptoms, he presented to the emergency room for evaluation. While in emergency room, patient presented in a significant sinus tachycardia with a first-degree AV block with heart rates in the 130s. He was given multiple doses of metoprolol which decreased his heart rate below 100. EKG obtained was without any findings consistent T wave inversion in the inferior and minor ST segment depression; However, patient does have a left bundle branch block and there is no comparison for an EKG in the past, QTc was 476, with normal axis. Patient's case was discussed with cardiology who recommended to continue patient on nitro drip and heparin drip with plans for left heart cath in the a.m. Due to these recommendations, patient been admitted for further management. During my evaluation of the patient, patient states he started experiencing chest pain at 1800 hrs. while walking to his car. His chest pain was coupled with shortness of breath. He states the chest pain was to his left shoulder that radiated down his left arm, was 10 out of 10, and coupled with diaphoresis. Patient admits to having intermittent chest pain for some time while at rest. He voices he was diagnosed with COVID in June and since then he has been having progressively worsening of his intermittent chest pain and shortness of air. Patient did have a stress test performed prior to his diagnosis of COVID, and it revealed possible inferior reversible defect. Unfortunately, patient has had no follow-up since this stress test was performed. Currently, patient is denying any chest pain, PND, lightheadedness, dizziness, fever, chills, rigors, nausea, vomiting, orthopnea, or diarrhea. Per my read, chest x-ray was without any acute cardiopulmonary process. Additional pertinent labs obtained include a heart rate of 138, blood pressure 170/112, D-dimer 0.55, blood glucose of 157, ALT of 90, BNP of 766, and free T4 of 2.4. On further questioning, patient admi ts to drinking at least a sixpack a day of beer and at least 10 or more beers a day on the weekend. Hospital Course Hospital Course Hospital Course: 49-year-old male who presented with concern for unstable angina. Taken for heart cath today, found to have patent coronaries. Echo did show EF 20% ho wever. New diagnosis of HFrEF. Did well with monitoring. LifeVest placed on day of discharge. On goal-directed meds. Stable to discharge home. Problems addressed as follows: Acute HFrEF Nonischemic cardiomyopathy Hypertension Hyperlipidemia - Initiated on heparin drip and nitroglycerin drip due to concern for NSTEMI and hypertension. Cardiology consulted, serial troponins found to be normal. Taken for heart cath 09/23/24. Did not have any significant occlusive lesions. Did have severely reduced EF however. Echo obtained showing EF 20%. New diagnosis of nonischemic cardiomyopathy, likely due to alcohol use and uncontrolled hypertension. Would benefit from close follow-up with cardiology and consideration of possible cardiac MRI. Further management pending cardiology follow-up. Tolerating goal-directed therapy with following medications: Aspirin 81 mg daily Eliquis 5 mg twice daily Atorvastatin 40 mg daily Metoprolol succinate 50 mg daily Lisinopril 5 mg daily LifeVest placed on day of discharge. Recommended he stay off of work until follow-up from cardiology. Mood disorder: Continue Wellbutrin 150 mg twice daily and divalproex 500 mg daily Hyperglycemia: A1c obtained at 5.3. Does not appear to have diabetes. Suspect stress reaction with hyperglycemia. Glucose on morning labs of 108. Found to have normal kidney function and electrolytes. Exam Data for Last 24 hours Vital signs and Labs for Last 24 Hours: Temp Pulse Resp BP Pulse Ox O2 Del Method O2 Flow Rate 97.9 F 62 15 113/77 93 L Room Air 2 09/24/24 04:00 09/24/24 06:00 09/24/24 06:00 09/24/24 06:00 09/24/24 06:00 09/24/24 07:00 09/23/24 12:00 Laboratory Results - last 24 hr 09/23/24 08:35: APTT 52.7 09/24/24 05:05: WBC 5.9, RBC 4.50 L, Hgb 14.6, Hct 42.6, MCV 94.7 H, MCH 32.4 H, MCHC 34.3, RDW 12.9, Plt Count 200, MPV 10.7 H, Neut % (Auto) 62.1, Lymph % (Auto) 23.0, [place] % (Auto) 10.8 H, Eos % (Auto) 2.9, Baso % (Auto) 0.5, Neut # (Auto) 3.6, Lymph # (Auto) 1.4, [place] # (Auto) 0.6, Eos # (Auto) 0.2, Baso # (Auto) 0.0, Sodium 138, Potassium 4.4, Chloride 106, Carbon Dioxide 28, Anion Gap 8.4, BUN 22 H D, Creatinine 1.10, Estimated Creat Clear 126, Estimated GFR 71, Est GFR ( Amer) 85, Glucose 91, Calcium 8.9 I & O for Last 24 hours: Intake & Output 09/21/24 09/22/24 09/23/24 09/24/24 23:59 23:59 23:59 23:59 Intake Total 570 / 970 400 / 400 Output Total 450 / 450 400 / 400 450 / 450 Balance -450 / -353 170 / 570 -50 / -50 Weight 112.264 kg 112 kg 111.856 kg Constitutional Constitutional: no acute distress, obese and cooperative *Routine HEENT Exam Head: Present normocephalic Eye: Present EOMI and PERRL ENT: Present mucous membranes moist *Routine Neck Exam Neck: Present supple; Absent lymphadenopathy *Routine Respiratory Exam Respiratory: Present CTA bilaterally; Absent wheezes or crackles *Routine Cardiovascular Exam Cardiovascular: Present RRR *Routine Abdominal Exam Abdominal: Present soft and normoactive bowel sounds; Absent tenderness *Routine Rectal Exam Patient deferred: visual exam *Routine Exam Patient deferred: penile exam *Routine Extremities Exam Extremities: Absent cyanosis, clubbing or edema *Routine Skin Exam Skin: Present warm; Absent rash *Routine Neurological Exam Neurological: Present alert, oriented X3 and moving all extremities; Absent altered mental status Results Data Completed and Pending Labs on day of discharge: Labs from last 24 hours 09/24/24 09/23/24 05:05 08:35 WBC 5.9 RBC 4.50 L Hgb 14.6 Hct 42.6 MCV 94.7 H MCH 32.4 H MCHC 34.3 RDW 12.9 Plt Count 200 MPV 10.7 H Neut % (Auto) 62.1 Lymph % (Auto) 23.0 [place] % (Auto) 10.8 H Eos % (Auto) 2.9 Baso % (Auto) 0.5 Neut # (Auto) 3.6 Lymph # (Auto) 1.4 [place] # (Auto) 0.6 Eos # (Auto) 0.2 Baso # (Auto) 0.0 APTT 52.7 Sodium 138 Potassium 4.4 Chloride 106 Carbon Dioxide 28 Anion Gap 8.4 BUN 22 H D Creatinine 1.10 Estimated Creat Clear 126 Estimated GFR 71 Est GFR ( Amer) 85 Glucose 91 Calcium 8.9 DS: Diagnosis Discharge Diagnosis (1) Acute HFrEF (heart failure with reduced ejection fraction): Status: Acute Code(s): I50.21 - Acute systolic (congestive) heart failure (2) Unstable angina: Status: Acute Code(s): I20.0 - Unstable angina (3) Hypertensive emergency: Status: Acute Code(s): I16.1 - Hypertensive emergency (4) Left bundle branch block: Status: Acute Code(s): I44.7 - Left bundle-branch block, unspecified (5) Elevated brain natriuretic peptide (BNP) level: Status: Acute Code(s): R79.89 - Other specified abnormal findings of blood chemistry (6) Hyperglycemia: Status: Acute Code(s): R73.9 - Hyperglycemia, unspecified Meds Home Medications and Allergies Home Medications ?Medication ?Instructions ?Recorded ?Confirmed ?Type aspirin 81 mg chewable tablet 81 mg PO DAILY 09/22/24 09/22/24 History bupropion HCl 150 mg tablet,12 hr 150 mg PO BID 09/22/24 09/22/24 History sustained-release divalproex 500 mg tablet,extended 500 mg PO DAILY 09/22/24 09/22/24 History release 24 hr lisinopril 5 mg tablet 5 mg PO DAILY 09/22/24 09/22/24 History omeprazole 40 mg capsule,delayed 40 mg PO DAILY 09/22/24 09/22/24 History release apixaban 5 mg tablet (Eliquis) 5 mg PO BID #60 tabs 09/24/24 Rx atorvastatin 40 mg tablet 40 mg PO HS #30 tabs 09/24/24 Rx metoprolol succinate 50 mg 50 mg PO DAILY 30 days #30 tabs 09/24/24 Rx tablet,extended release 24 hr (Toprol XL) New Prescriptions to Start Prescriptions: apixaban [Eliquis] Ranjeet Head atorvastatin Ranjeet Head metoprolol succinate [Toprol XL] Ranjeet Head Allergies Allergy/AdvReac Type Severity Reaction Status Date / Time No Known Allergies Allergy Verified 09/22/24 20:31 Discharge Plan Disposition Patient Disposition: Home, Self-Care Condition: Fair Discharge Order Discharge Orders: Discharge Order (Routine); Ordered 09/24/24 Ordered By: Ranjeet Head Follow up Plan Follow up with: Scout Milan MD [Primary Care Provider] - 09/28/24 2:00 pm Benjamin Wallace PA [Physician Health Service Worker] - 10/06/24 11:15 am Prescriptions/Medication Reconciliation: New atorvastatin 40 mg Tablet 40 mg PO HS Qty: 30 0RF Eliquis 5 mg Tablet 5 mg PO BID Qty: 60 0RF metoprolol succinate [Toprol XL] 50 mg Tablet Extended Release 24 Hr 50 mg PO DAILY 30 Days Qty: 30 0RF Continued bupropion HCl 150 mg tablet sustained-release 12 hr 150 mg PO BID Patient Comments: TAKE 1 TABLET BY MOUTH TWICE DAILY FOR 90 DAYS omeprazole 40 mg capsule,delayed release(DR/EC) 40 mg PO DAILY Patient Comments: TAKE 1 CAPSULE BY MOUTH ONCE DAILY divalproex 500 mg tablet extended release 24 hr 500 mg PO DAILY Patient Comments: TAKE 1 TABLET BY MOUTH ONCE DAILY lisinopril 5 mg tablet 5 mg PO DAILY Patient Comments: TAKE 1 TABLET BY MOUTH ONCE DAILY aspirin 81 mg Tablet,Chewable 81 mg PO DAILY Discontinued atorvastatin 10 mg tablet 10 mg PO DAILY Patient Comments: TAKE 1 TABLET BY MOUTH ONCE DAILY FOR 90 DAYS amlodipine 10 mg tablet 10 mg PO DAILY Patient Comments: TAKE 1 TABLET BY MOUTH ONCE DAILY FOR 90 DAYS Problem Reconciliation Problems Reviewed?: Yes Patient Discharge Instructions ACTIVITY: Continue current activity DIET: continue same diet Patient Instructions: Heart Failure, Coronary Artery Disease, Cardiac Catheterization, Acute Coronary Syndrome, Heart Block -- Adult, DI for Heart Block, DI for Atypical Chest Pain, DI for Chronic Pain -- Adult, DI for Hyperglycemia -- Adult, DI for Chest Pain, Surgical Site Infection, Moderate Sedation, DI for Post-Surgical Bleeding Print Language: [place] Leonean Providers Primary Care Provider: Scout Milan Admit Provider: Ranjeet Head Attending Provider: Ranjeet Heda
--- NOTE | 2024-09-24 08:17 | P.PN_ITS ---
Subjective Subjective Date: 09/24/24 Time: 08:18 Principal diagnosis: Unstable angina, severe cardiomyopathy Interval history: 49-year-old white male in bed in no acute distress. No complaints overnight. Anxious to go home but knows the needs the LifeVest prior to discharge. Exam Data for Last 24 hours Vital signs and Labs for Last 24 Hours: Temp Pulse Resp BP Pulse Ox O2 Del Method O2 Flow Rate 98.4 F 73 16 113/77 94 L Room Air 2 09/24/24 08:00 09/24/24 08:00 09/24/24 08:00 09/24/24 08:00 09/24/24 08:00 09/24/24 08:00 09/23/24 12:00 Laboratory Results - last 24 hr 09/23/24 08:35: APTT 52.7 09/24/24 05:05: WBC 5.9, RBC 4.50 L, Hgb 14.6, Hct 42.6, MCV 94.7 H, MCH 32.4 H, MCHC 34.3, RDW 12.9, Plt Count 200, MPV 10.7 H, Neut % (Auto) 62.1, Lymph % (Auto) 23.0, [place] % (Auto) 10.8 H, Eos % (Auto) 2.9, Baso % (Auto) 0.5, Neut # (Auto) 3.6, Lymph # (Auto) 1.4, [place] # (Auto) 0.6, Eos # (Auto) 0.2, Baso # (Auto) 0.0, Sodium 138, Potassium 4.4, Chloride 106, Carbon Dioxide 28, Anion Gap 8.4, BUN 22 H D, Creatinine 1.10, Estimated Creat Clear 126, Estimated GFR 71, Est GFR ( Amer) 85, Glucose 91, Calcium 8.9 I & O for Last 24 hours: Intake & Output 09/21/24 09/22/24 09/23/24 09/24/24 11:59 11:59 11:59 11:59 Intake Total 120 / 120 850 / 850 Output Total 850 / 850 450 / 450 Balance -730 / -730 400 / 400 Weight 247 lb 7.996 oz 246 lb 9.6 oz Constitutional Constitutional: no acute distress *Routine Respiratory Exam Respiratory: Present CTA bilaterally *Routine Cardiovascular Exam Cardiovascular: Present RRR Progress Note: A&P Assessment and plan (1) Acute HFrEF (heart failure with reduced ejection fraction): Status: Acute (2) Unstable angina: Status: Acute (3) Hypertensive emergency: Status: Acute (4) Left bundle branch block: Status: Acute (5) Elevated brain natriuretic peptide (BNP) level: Status: Acute (6) Hyperglycemia: Status: Acute Assessment and Plan Assessment and Plan for All Diagnoses:: 1. Unstable angina with new non-ischemic Cardiomyopathy (likely due to ETOH and uncontrolled HTN) -troponins normal -LBBB with no old EKG for comparison -Echo EF 20% -LHC showed non-obstructive CAD with EF 15% -GDMT started with SEGUNDO, BB, spironolactone and jardiance -eliquis 5 mg BID for severe LV dysfunction -complete ETOH abstinence 2. LBBB on EKG -no old EKG for comparison 3. HTN -meds adjusted to include lisinopril and metoprolol -amlodine stopped due to cardiomyopathy 4. HLD -continue statin -LDL 159 5. Hyperglycemia -HgbA1C 5.3 6. Elevated BNP but CXR negative for CHF Waiting for Life Vest before discharge. Follow up in one week to schedule outpatient Cardiac MRI Home meds: Aspirin 81 mg daily Eliquis 5 mg twice daily Atorvastatin 40 mg daily Metoprolol succinate 50 mg daily Lisinopril 5 mg daily
[2024-09-24] MEDS: buPROPion HCl SR 150MG TAB 150 MG PO (08:40)
[2024-09-24] MEDS: LISINOPRIL 5MG TABLET 5 MG PO (08:40)
[2024-09-24] MEDS: DIVALPROEX 250MG (EXTENDED-RELEASE) TABLET 500 MG PO (08:40)
[2024-09-24] MEDS: ASPIRIN 81MG CHEWABLE TABLET 81 MG PO (08:40)
[2024-09-24] MEDS: APIXABAN 5MG TABLET 5 MG PO (08:40)
[2024-09-24] MEDS: METOPROLOL SUCCINATE XL 50MG TABLET 50 MG PO (08:42)
--- NOTE | 2024-09-24 18:50 | PEERSUPPORT ---
Peer Support Note Patient Information Patient Information: DOS: 09/23/2024 ? Reason: ETOH ? Ps consult ? ETOH HX: Functional alcoholic for many years. Beer 12-24 pack, bourbon in coffee in the mornings. [place] at night after work with 6-12 beers, Doubled on the weekend. Socially drinks with family and coworkers. ? Previous Treatment: No treatment ? Desire for MAT: Pt is wanting to go to [facility] for MAT, support and Vivitrol injection. ? Longest Length of Sobriety: 2 years by choice to not drink, good experience. ? Legal Issues: None ? Support System: Mother in law- three years in AA, very supportive ? Current Stressors: -Responsibility to work. -Heart Health condition-fearful -Reality of life or ? Motivation for Change: -Pt stated he is going to [facility] to receive his vivitrol injection, he does not want to have to take a pill daily. He has already had conversations with his and in agreement of no drinking, has removed any and all alcohol from the home. He is able to identify his habits to people, places and things that will require him to no longer associate with. Pt is agreeing that can rearrange his garage and regular areas at his home to make necessary mind changes and awareness to maintain his sobriety. He has experienced sobriety for two years, remembers the better feeling of clarity so is accepting of the process to recovery now. Pt has his first time grandchild on the way, and is tearful when speaking of this as a motivation to make changes with no options to return to drinking as it is life or . Ps shared personal experience relevant to situation to give hope and strength to one day at a time and make priority his sobriety to enhance overall health. ? Pt receptive with ps agreeing to follow up phone calls for ongoing support. ? Potential Barriers: -Stress of health changes -Life Vest to be worn at all times -Responsibility and expectations with work. ? Harm Reduction: -Connection to [facility] for recovery focused support -Referral to [facility] -Education of AUD and Medication options available -Primary Care Follow up -Relapse prevention plan for weekend -Healthy communication awareness ? Plan of action: -Refrain from drinking alcohol -Take medication as directed -Attend appointment with [facility] -Follow up phone calls with [facility] ?
--- NOTE | 2024-09-27 13:09 | SW/DCPLANNER ---
Spoke with patient's on the phone. Patient's stated that her is doing good. Patient's stated that she is aware of his upcoming appointments. Patient's stated that she was able to get his new medicine picked up from the pharmacy. Patient's stated that she has no concerns or questions at this time. Donavan Samuel
== END 2024-09-24 16:04 | disposition home or self-care (01) | DRG 286 ==
LOC: ER 19:46 → 2ND 19:58
PROVIDERS: Internal Medicine; Nurse Practitioner Family; Physician Assistant; Admitting Provider Internal Medicine Adolescent Medicine; Emergency Provider Student in an Organized Health Care Education/Training Program; PCP Family Medicine; Visit Provider Internal Medicine Adolescent Medicine
PROC: 4A023N7 Measurement of Cardiac Sampling and Pressure, Left Heart, Percutaneous Approach (ICD-10-PCS; principal; 2024-09-23 12:00)
DX: I11.0 Hypertensive heart disease with heart failure (principal); I50.21 Acute systolic (congestive) heart failure; I16.1 Hypertensive emergency; I20.0 Unstable angina; I44.7 Left bundle-branch block, unspecified; R73.9 Hyperglycemia, unspecified; F39 Unspecified mood [affective] disorder; F10.90 Alcohol use, unspecified, uncomplicated; I42.8 Other cardiomyopathies; E66.9 Obesity, unspecified; E78.5 Hyperlipidemia, unspecified; Z79.899 Other long term (current) drug therapy; Z79.82 Long term (current) use of aspirin; Z68.33 Body mass index [BMI] 33.0-33.9, adult
CPT/HCPCS: 36415; 71046; 80048; 80053; 80061; 80307; 81001; 83036; 83880; 84145; 84436; 84443; 84479; 84484; 85025; 85378; 85610; 85730; 87081; 93005; 93306; 93458; 99152; 99291; C1725; C1769; J0131; J1200; J1644; J1885; J1938; J2250; J2405; J3010; Q9967

== ENCOUNTER 2024-10-13 13:26 | Outpatient (CLI) | payer BC, SELFPAY ==
--- NOTE | 2024-10-13 13:45 | CA_ITS ---
APPROVED REPORT EXAM: Limited 2D Echocardiogram with contrast Granular Operator: Tania Patel RVT Ht: 6 ft 0 in Wt: 251lbs BSA: 2.35 BP: 137/87 mmHg Indications: EF CHECK,EF OF 20% ON 09/22/24,LIFEVEST IN PLACE HTN,HLD Echo Enhancing Agent Indication: Endocardial border delineation Agent(s) / Amount(s) Used: Definity 2 cc M-Mode Dimensions RVDd 2.72 cm (0.9-2.6) LA Diam 4.14 cm (1.9-4.0) LVDd 6.37 cm (3.5-5.7) LVDs 5.20 cm (3.5-5.7) IVSd 1.31 cm (0.6-1.1) PWd 0.61 cm (0.6-1.1) EF (Teich) 37.20% FS 18.40% EDV (Teich) 206.30 mL ESV (Teich) 129.50 mL Other Information Study Quality: Fair Conclusion This is a limited TTE to evaluate for LV systolic function. Limited windows are obtained. Agent is administered. The left ventricle is moderately dilated. There is increased LV wall thickness. There is severe global hypokinesis present. The septum is asynchronous. No evidence of LV thrombus after administration of ultrasound enhancing agent. LVEF is 20%. Compared to prior study from 09/19/2024, the LVEF is unchanged. Electronically signed by : Marilee Lopez MD 10/16/2024 00:17:19
[2024-10-13] MEDS: DEFINITY US ECHO CONTRAST 2ML INJ 2 MG IV (14:13)
== END 2024-10-13 23:59 | disposition home or self-care (01) ==
LOC: RT 13:27
PROVIDERS: PCP Family Medicine; Visit Provider Physician Assistant
DX: I50.21 Acute systolic (congestive) heart failure (principal)
CPT/HCPCS: 93308; Q9957

== ENCOUNTER 2024-11-17 14:06 | Outpatient (RCR) | payer BC, SELFPAY | END 2024-12-27 08:00 | disposition home or self-care (01) | LOC: CR 14:06 | PROVIDERS: Visit Provider Physician Assistant | DX: I50.21 Acute systolic (congestive) heart failure (principal) | CPT/HCPCS: 93798 ==

== ENCOUNTER 2024-12-31 10:17 | Outpatient (CLI) | payer BC, SELFPAY ==
--- NOTE | 2024-12-31 10:15 | CA_ITS ---
APPROVED REPORT EXAM: Limited 2D and color flow [employer] Sales Executive: ELY Sheikh, RVS Ht: 6 ft 0 in Wt: 248lbs BSA: 2.33 BP: 123/82 mmHg Indications: Dilated CM, HTN, HLD, Previous ETOH use disorder 2D Dimensions IVSd 1.78 cm M: 0.6-1.2 LVEF (Visual) 39.20 % PWd 1.55 cm M: 0.6 - 1.2 LVDd 5.99 cm M: 4.2 - 5.9 LVDs 4.83 cm M: 2.5 - 4.0 M-Mode Dimensions LVDd 6.68 cm (3.5-5.7) LVDs 5.85 cm (3.5-5.7) IVSd 1.45 cm (0.6-1.1) PWd 1.33 cm (0.6-1.1) EF (Teich) 26.10% FS 12.40% EDV (Teich) 229.80 mL ESV (Teich) 169.90 mL Other Information Study Quality: Fair Conclusion There is a limited TTE to evaluate for LV systolic function. Limited windows were obtained. The left ventricle is moderately dilated. There is increased LV wall thickness. There is severe global hypokinesis present. There is akinesis of the septal, inferoseptal, and anteroseptal LV morales. The septum is asynchronous. LVEF is 25-30%. Electronically signed by : Marilee Lopez MD 12/31/2024 12:29:26
--- OUTSIDE RECORDS SUMMARY | 2024-12-31 10:20 | XMS_ITS | Encounter Summary ---
Author Organization [facility] Address [address] [place] [id number] Phone [email or web address] Care Team Providers Care Service Support Representative Name Role Phone Unavailable Primary Care Provider Unavailabl e Encounter Details Date Type Department Care Team (Late st Contact Info) Description 11/02/2024 Telephone [facility] [address] [place] [phone] Ashish Stovall MD [address] [place] [phone] Social History Tobacco Use Types Packs/Day Years Used Date Smoking Tobacco: Never Assessed Intimate Partner Violence Answer Date R ecorded Insults You Not on file 09/12/2020 Threatens You Not on file 09/12/2020 Screams at You Not on file 09/12/2020 Physically Hurt Not on file 09/12/2020 Intimate Partner Violence Score Not on file 09/12/2020 Stress Answer Date Recorded Stress in your Life Not on file 04/05/2024 Dealing with Stress 3 04/05/2024 Sex and Gender Information Value Date Recorded Sex Assigned at Not on file Legal Sex Male 8:11 AM CDT Gender Identity Not on file Sexual Orientation Not on file documented as of this encounter Miscellaneous Notes * Telephone Encounter - Maximilian Treadwell - 11/02/2024 11:22 AM EDT 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 extension pending review of medical records. Reason for leave: Acute Coronary Syndrome. Hospitalization 09/22/24-09/24/24. Call placed to engineer steam today on [phone]. member of parliament states started 6 weeks of cardiac rehab today for 3 times a week and is feeling well and should be able to RTW remotely, has food concession manager approval, date TBD by . TM requesting access to [employer] for short time to be able to work on a car lease return. Informed TM work access will be restored once able to RTW but may email [email or web address] and inquire if possibility for short time. TM states understanding. Previous email sent to personal email address with case management contact to call with questions Advised Service Support Representative to continue to maintain contact with [facility]. Follow up in 2 weeks; sooner as needed. Facilitate RTW process. Personal email: [email or web address] Maximilian Treadwell RN Case Manager documented in this encounter Plan of Treatment Not on file documented as of this encounter Visit Diagnoses Not on filedocumented in this encounter
--- OUTSIDE RECORDS SUMMARY | 2024-12-31 10:20 | XMS_ITS | Encounter Summary ---
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 [employer] approved extension through 12/30/24. ERTW 12/31/24. Reason for leave: Acute Coronary Syndrome. Hospitalization 09/22/24-09/24/24. Voicemail received from Mailroom Clerk states need to discuss return to work process. Call returned toteam member today on [phone]. receiving team member states MD will release to full duty. Informed TM to upload release note to with date of RTW and inform this CM of date. CM to send email informing Johnnie DIAZ in order to restore access. TM states understanding and states his annual campaign manager is aware. Previous email sent to personal email address with case management contact to call with questions Advised Mailroom Clerk to continue to maintain contact with [facility]. Follow up in 2 weeks; sooner as needed. Facilitate RTW process. Personal email: [email or web address] Maximilian Treadwell RN Case Manager documented in this encounter Plan of Treatment Not on file documented as of this encounter Visit Diagnoses Not on filedocumented in this encounter
--- OUTSIDE RECORDS SUMMARY | 2024-12-31 10:20 | XMS_ITS | Clinical Summary ---
Author Organization [facility] Address [address] [place] [phone] Phone Care Team Providers Care Tumbler Tender Name Role Phone Unavailable Primary Care Provider Unavailabl e Allergies No known active allergies Medications lisinopril (PRINIVIL;ZESTRI L) 10 mg Oral Tablet Take 10 mg by mouth daily. Active amLODIPine (NORVASC) 10 mg Oral Tablet Take 10 mg by mouth daily. Active buPROPion (WELLBUTRIN) 100 mg Oral Tablet Take 150 mg by mouth 2 times daily. Active divalproex (DEPAKOTE ER) 500 mg Oral Tablet Sustained Release 24 hr Take 500 mg by mouth daily. Active omeprazole (PRILOSEC) 40 mg Oral Capsule, Delayed Release(E.C.) Take 40 mg by mouth daily. Active Medical History Medical History Date Comments Hypertension Anxiety Depression GERD (gastroesophageal reflux disease) Social History Tobacco Use Types Packs/Day Years Used Date Smoking Tobacco: Former Smokeless Tobacco: Never Alcohol Use Standard Drinks/Week Comments Never 0 (1 standard drink = 0.6 oz pur e alcohol) AUDIT-C Answer Date Recorded Frequency of Alcohol Consumption Never 11/24/2018 Average Number of Drinks Not on file 019 Frequency of Binge Drinking Not on file 11/01 Sex and Gender Information Value Date Recorded Sex Assigned at Not on file Legal Sex Male 9:00 PM EDT Gender Identity Not on file Sexual Orientation Not on file Obstetrics History Last Filed Vital Signs Vital Sign Reading Time Taken Comments Blood Pressure 156/104 11/24/2018 11:20 PM EDT Pulse 91 11/24/2018 11:20 PM EDT Temperature 36.8 C (98.2 F) 11/24/2018 9:06 PM EDT Respiratory Rate 20 11/24/2018 9:06 PM EDT Oxygen Saturation - - Inhaled Oxygen Concentration - - Weight - - Height - - Body Mass Index - - Plan of Treatment Health Maintenance Due Date Last Done Comments Annual Wellness Exam 1976 DTaP/TDaP/Td (1 - Tdap) 1992 Hepatitis B Vaccine (1 of 3 - 19+ 3-dose series) 1992 Cologuard 2018 Colon Cancer Screening 2018 Colonoscopy 2018 FIT 2018 Sigmoidoscopy 2018 Virtual Colonography 2018 Pneumococcal Vaccine 50+ (1 of 1 - PCV) 2023 Zoster (1 of 2) 2023 COVID-19 Vaccine (1 - 2023-2 5 season) 2024 Influenza Vaccine (#1) 2025 Meningococcal B Vaccine Aged Out No l onger eligible based on patient's age to complete this topic Insurance [facility]
--- OUTSIDE RECORDS SUMMARY | 2024-12-31 10:20 | XMS_ITS | Encounter Summary ---
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 [employer] approved extension through 12/30/24. ERTW 12/31/24. Reason for leave: Acute Coronary Syndrome. Hospitalization 09/22/24-09/24/24. Call received from states has RTW release note from without restrictions and first day back will be 12/31/2024. Note received from and this CM sent email to Johnnie MONZON team with note and to request access restored. TM thanked this CM for all the support during his leave and has no other questions at this time. Personal email: [email or web address] Maximilian Treadwell RN Case Manager documented in this encounter Plan of Treatment Not on file documented as of this encounter Visit Diagnoses Not on filedocumented in this encounter
--- OUTSIDE RECORDS SUMMARY | 2024-12-31 10:20 | XMS_ITS | Clinical Summary ---
Author Organization [facility] Address [address] [place] [phone] Phone [email or web address] Care Team Providers Care Industrial Laborer Name Role Phone Unavailable Primary Care Provider Unavailabl e Encounters Date Type Department Care Team Description 12/27/2024 Telephone [facility] [address] [place] [phone] Maximilian Treadwell 12/08/[address] [place] [address] Maximilian Treadwell 11/02/[address] [facility] [place] [address] Ashish Stovall MD 10/19/[address] [place] [address] Ashish Stovall MD 10/06/2024 [address] [place] [address] Ashish Stovall MD 10/06/[address] [place] [address] Ashish Stovall MD 10/05/[address] [place] [address] Ashish Stovall MD from Last 3 Months Immunizations Immunization Administration Dates Next Due COVID-19 (Pfizer Sargent 12 yrs+) (CVX-208) 021,08/17/2020 Social History Tobacco Use Types Packs/Day Years [...] on file Sexual Orientation Not on file Plan of Treatment Health Maintenance Due Date Last Done Comments Dental Cleaning/Exam 1973 HIV Screening 1973 Hepatitis C Screening 1973 Annual Preventive Exam 1991 Hep B Infection Screening - Triple Screen 1991 Hepatitis B Immunization (1 of 3 - 19+ 3-dose series) 1992 Tetanus Diphtheria and Pertussis Immunization (1 - Tdap) 1992 Colorectal Cancer Screening 2003 Zoster Immunization (1 of 2) 2023 Covid-19 Immunization (3 - season) 2024 09/11/2020, 08/17/2020 Influenza Immunization (#1) 2025 HIB Immunization Aged Out No longer e ligible based on patient's age to complete this topic HPV Immunization Aged Out No longer e ligible based on patient's age to complete this topic Hepatitis A Immunization Aged Out No longer eligible based on patient's age to complete this topic Pneumococcal: Ped (0 to 5 Yrs) and At-Risk Member (6 to 64 Yrs) Aged Out No longer eligible b ased on patient's age to complete this topic Polio Immunization Aged Out No longer eligible based on patient's age to complete this topic
== END 2024-12-31 23:59 | disposition home or self-care (01) ==
LOC: RT 10:17
PROVIDERS: PCP Family Medicine; Visit Provider Physician Assistant
DX: I11.0 Hypertensive heart disease with heart failure (principal); I50.21 Acute systolic (congestive) heart failure; I42.0 Dilated cardiomyopathy; E78.5 Hyperlipidemia, unspecified; R94.31 Abnormal electrocardiogram [ECG] [EKG]; R93.1 Abnormal findings on diagnostic imaging of heart and coronary circulation
CPT/HCPCS: 93308

== ENCOUNTER 2025-01-28 09:11 | Day surgery (SDC) | payer BC, SELFPAY ==
[2025-01-28] VITALS (8 sets, daily range): BP systolic 118–156; BP diastolic 80–95; PULSE 77–94; RESP 16–18; TEMP 36.1–37.1; O2SAT 91–98; BMI 33.0
--- NOTE | 2025-01-28 07:16 | IR_ITS ---
APPROVED REPORT Patient Location: Outpatient PROCEDURES 1. Pocket formation for biventricular pacemaker generator with cardiac resynchronization/defibrillator therapy. 2. Placement of atrial sensing and pacing lead into the right atrial appendage. 3. Placement of a right ventricular sensing, pacing and shocking lead in the right ventricular apex. 4. Placement of left ventricular sensing pacing lead via the coronary sinus. 5. Permanent cardiac resynchronization therapy with ICD implantation/biventricular pacemaker. INDICATION Systolic Congestive Heart Failure, ejection <35%, Wide QRS > 150 ms, [place] Heart Assoication Class 3 Congestive Heart Failure, Left bundle branch block Informed consent was obtained prior to the procedure. COMPLICATIONS NONE Estimated Blood Loss: LESS THAN 10 ML TECHNIQUE 1% Lidocaine with epinephrine used to anesthetized the left anterior aspect of the chest. Scalpel was used to make the initial cutaneous incision while electrocautery was used to dissect down tinto the fascia. The fascia was lifted off the pectoralis muscle and digitally manipulated creating a pocket for the defibrillator. The patient was then placed in Trendelenburg position and the subclavian vein was accessed 3 times via the Selinger technique. A 8 Bahamian sheath was placed under fluoroscopic guidance into the subclavian vein. The dilator was removed from the sheath. Using fluoroscopic guidance, the ventricular lead was placed into the right ventricular apex, screwed and secured into place. Electronic interrogation proved acceptable thresholds and voltage within the lead. Using 3-0 silk, the ventricular lead was then secured into place and sheath peeled away. Following this, a 9.5 Bahamian sheath and dilator was then placed over one of the wires while keeping the other wire in place within the subclavian vein. The dilator was removed from the sheath. Using fluoroscopic guidance, contrast was used to visualize the coronary sinus, the left ventricular lead was placed into the coronary sinus. Electronic interrogation proved acceptable thresholds and voltage within the lead. Using 3-0 silk, the left ventricular lead was then secured into place and sheath peeled away.An additional 6 Bahamian fresh sheath and dilator was placed over the existing wire. Using fluoroscopic guidance, the atrial lead was then placed into the right atrial appendage and screwed and secured in place. Electrical interrogation demonstrated acceptable thresholds and voltage number. The atrial lead was then secured into place using 3-0 silk and sheath peeled away. 1 gram of Ancef was used to flush the pocket. All 3 leads were connected to generator and tested via computer. The defibrillator then secured to the fascia. Monocryl was used to close the subcutaneous layers while ale were used to close the cutaneous layer. A pressure dressing was placed and the patient was transferred to the postop holding area in stable condition for postoperative care. INTERROGATION Generator Model number: [id number] Generator Serial number: [id number] Atrial lead model number: [id number] Atrial lead serial number: [id number] P-wave: 4.2mv Impedance: 700 ohms Threshold: 0.5v@0.5ms Right Ventricular lead model number: [id number] Right Ventricular lead serial number: [id number] R-wave: >12mv Impedance: 48 ohms Threshold: 0.5v@0.5ms 660 ohms Left Ventricular lead model number: [id number] Left Ventricular lead serial number: [id number] Impedance: 1225 ohms Threshold: 0.5v@0.5ms Pacing Parameters: Mode: DDDR Base/Max Track:60 ppm / 130 ppm No diaphragmatic stimulation at 10 volts. IMPRESSION 1.Successful Pocket formation for biventricular pacemaker generator with cardiac resynchronization/defibrillator therapy. 2. Successful Placement of atrial sensing and pacing lead into the right atrial appendage. 3. Successful Placement of a right ventricular sensing, pacing and shocking lead in the right ventricular apex. 4. Successful Placement of left ventricular sensing pacing lead via the coronary sinus. 5. Successful Permanent cardiac resynchronization therapy with ICD implantation/biventricular pacemaker. PLAN 1. Postop wound care. Electronically signed by : Sidney Adrian MD 01/28/2025 15:31:18
--- NOTE | 2025-01-28 10:39 | XR_ITS ---
FINAL REPORT TECHNIQUE: Portable chest x-ray CLINICAL HISTORY: Confirm pacemaker/AID placement COMPARISON: None FINDINGS: A portable view of the chest is obtained. A left AICD device is present. Cardiac and mediastinal silhouettes are normal. The lungs are clear. There is no pleural effusion or pneumothorax. IMPRESSION: No acute process on this portable exam. Reviewed, Interpreted and Dictated by Brooklyn Gonzalez MD Transcribed by Betty Sotomayor Authenticated and [facility]
[2025-01-28 10:43] LABS: Hematocrit 42.7 % (42.0-52.0); Hemoglobin 15.0 g/dL (14.1-18.0); Immature Granulocytes % 0.4 %; Mean Corpuscular HGB Conc 35.1 g/dL (31.8-35.4); Mean Corpuscular Hemoglobin 32.3 pg (27.0-31.2); Mean Corpuscular Volume 92.0 fl (80-94); Nucleated Red Blood Cells % 0 %; Platelet Count 256 K/mm3 (142-424); Red Blood Count 4.64 M/mm3 (4.60-6.20); Red Cell Distribution Width-SD 40.7 fL; White Blood Count 5.0 K/mm3 (4.8-10.8)
[2025-01-28 10:45] LABS: Chloride 106 mmol/L (98-107); Sodium 137 mmol/L (136-145)
[2025-01-28 10:46] LABS: Potassium 4.4 mmoL/L (3.5-5.1)
[2025-01-28 10:48] LABS: Blood Urea Nitrogen 19 mg/dl (9-20); Creatinine Clearance Estimated 171 mL/min (50-200); Creatinine,Serum 0.80 mg/dl (0.66-1.25); Estimated Glomerular Filt Rate 102 ml/min (>60); GFR (African American) 123 ML/MIN (>60)
[2025-01-28 10:49] LABS: Anion Gap 9.4 mEq/L (5-15); Calcium 9.2 mg/dl (8.4-10.2); Carbon Dioxide 26 mmol/L (22.0-30.0); Glucose 117 mg/dl (74-100)
--- NOTE | 2025-01-28 10:58 | P.PNANES_ITS ---
[facility] Disclaimer: The information contained in this section may have been updated after the patient was seen, as this information can be updated by other users. Medical History Peptic ulcer Alcoholic Hyperlipidemia Hypertension Surgical History H/O shoulder surgery Family History Other Diabetes Heart attack Hyperlipidemia Hypertension Social History Smoking Status: Never smoker alcohol intake: current substance use type: denies use current occupational status: employed Travel in the last 8 weeks?: Outside the [facility] Anesthesia Checklist Patient Identification Patient Identification: Arm Band Structural Data Admitted From: Home Planned Operative Procedure/s: Biventricular AICD Placement Consent for Planned Operative Procedure(s) Verified: Yes Verified Documents: Surgical Consent and History and Physical NPO Status Verified Time NPO: 00:00 Additional verifications Anesthesia Reactions: No Airway Assessment Mallampati Score:: Class II C-Spine Mobility Assessed: Yes TMJ Mobility Assessed: Yes Dentition: Good Dentition Neurological Assessment Level of Consciousness: Awake, Alert and Appropriate Anesthesia Plan Anesthesia Risk discussed: Yes Anesthesia Plan: Verified ASA Class: IV Anesthesia Type: MAC
[2025-01-28] MEDS: LIDOCAINE 1% W/EPI 1:100,000 20ML VIAL 20 ML SUBCUT (11:48)
[2025-01-28] MEDS: 0.9 % SODIUM CHLORIDE 1000ML 1,000 ML 25 ML IV (11:49)
== END 2025-01-28 15:12 | disposition home or self-care (01) ==
PROVIDERS: PCP Family Medicine; Visit Provider Internal Medicine
PROC: 0JH609Z Insertion of Cardiac Resynchronization Defibrillator Pulse Generator into Chest Subcutaneous Tissue and Fascia, Open Approach (ICD-10-PCS; CPT 33249; principal; 2025-01-28 09:15)
DX: I25.5 Ischemic cardiomyopathy (principal); I50.21 Acute systolic (congestive) heart failure; I11.0 Hypertensive heart disease with heart failure; I44.7 Left bundle-branch block, unspecified; R00.2 Palpitations; E78.49 Other hyperlipidemia; R73.9 Hyperglycemia, unspecified; R94.31 Abnormal electrocardiogram [ECG] [EKG]; Z79.82 Long term (current) use of aspirin; Z79.899 Other long term (current) drug therapy; Z82.49 Family history of ischemic heart disease and other diseases of the circulatory system
CPT/HCPCS: 33225; 33249; 71045; 80048; 85025; C1769; C1882; C1895; C1898; C1900; J2003; J2704; J7030